=== PATIENT | male | born 1950 | race Caucasian/White ===

== ENCOUNTER 2019-05-29 22:38 | Inpatient (IN) | payer OTHER, MEDICARE ==
[~2019-05-29] VITALS: Ht 177.8 cm; Wt 106.7 kg
[2019-05-29] MEDS ORDERED: HEPARIN for IV BOLUS 10,000 UNIT/10 ML VIAL. IV ONE (23:00)
[2019-05-29] MEDS ORDERED: MIDAZOLAM HCL/PF 2 MG/2 ML VIAL. ONE (23:02)
[2019-05-29] MEDS ORDERED: fentaNYL PF VIAL 100 MCG/2 ML VIAL ONE (23:02)
[2019-05-29] MEDS ORDERED: LIDOCAINE 1% Multi-Dose 20 ML VIAL. ONE (23:03)
[2019-05-29] MEDS ORDERED: IODIXANOL 320 MG/ML 100 ML VIAL. ONE (23:03)
[2019-05-29 23:05] LABS: BASO # 0.1 x10^3/uL (0.0-0.2); BASO % 1 % (0-3); EOS # 0.2 x10^3/uL (0.0-0.7); EOS % 3 % (0-3); HEMATOCRIT 42.9 % (39.0-53.0); HEMOGLOBIN 14.7 g/dL (13.0-17.5); LYMPH # 2.5 x10^3/uL (1.0-4.8); LYMPH % 32 % (24-48); MEAN CORPUSCULAR HEMOGLOBIN 30 pg (25-35); MEAN CORPUSCULAR HGB CONC 34 g/dL (31-37); MEAN CORPUSCULAR VOLUME 87 fL (79-100); MONO # 0.5 x10^3/uL (0.0-1.1); MONO % 7 % (0-9); NEUT # 4.5 x10^3/uL (1.8-7.7); NEUT % 58 % (31-73); PLATELET COUNT 212 x10^3/uL (140-400); RED BLOOD COUNT 4.92 x10^6/uL (4.30-5.70); RED CELL DISTRIBUTION WIDTH 14.9 % (11.5-14.5); WHITE BLOOD COUNT 7.8 x10^3/uL (4.0-11.0)
[2019-05-29 23:14] LABS: PROTHROMBIN TIME PATIENT 12.3 SEC (11.7-14.0)
[2019-05-29 23:15] LABS: CALCIUM 9.2 mg/dL (8.5-10.1); CREATININE 0.9 mg/dL (0.7-1.3); GFR 83.4; POTASSIUM 4.1 mmol/L (3.5-5.1)
[2019-05-29 23:21] LABS: ALBUMIN 3.3 g/dL (3.4-5.0); ALBUMIN/GLOBULIN RATIO 0.9 (1.0-1.7); TOTAL BILIRUBIN 0.5 mg/dL (0.2-1.0); TOTAL PROTEIN 6.8 g/dL (6.4-8.2)
[2019-05-29] MEDS ORDERED: NITROGLYCERIN SUBLINGUAL 0.4 MG BOTTLE OF 25. SL PRN (23:30)
[2019-05-29] MEDS ORDERED: HEPARIN for IV BOLUS 10,000 UNIT/10 ML VIAL. IV PRN (23:30)
[2019-05-29] MEDS: HEPARIN 25,000UTS/500ML PREMIX 500 ML IV PRN (23:37)
--- NOTE | 2019-05-29 23:41 | PHYS DOC ---
Adult General Chief Complaint Chief Complaint: CHEST PAIN HPI HPI Patient is a 69 year old [male with a prior history of coronary artery disease status post stent placement presenting with severe chest pain onset 7:30 felt in the mid back up into the chin and jaw area bilateral arms and also pressure in the center of the chest associated with diaphoresis and nausea paramedics identified a STEMI gave him nitroglycerin and aspirin and fentanyl on arrival to the emergency room the pain is down to a 4 out of 10 and when the raisin separator operator came to see him here in the emergency room he basically had gone away all the way Review of Systems Review of Systems Constitutional: Denies fever or chills [] Eyes: Denies change in visual acuity, redness, or eye pain [] miting, bloody stools or diarrhea [] Musculoskeletal: Integument: Denies rash or skin lesions [] Neurologic: Denies headache, focal weakness or sensory changes [] Endocrine: Denies polyuria or polydipsia [] All other systems were reviewed and found to be within normal limits, except as documented in this note. Current Medications Current Medications Current Medications Medications (Trade) Dose Ordered Sig/Popeye Start Time Stop Time Status Last Admin Dose Admin Fentanyl Citrate (Fentanyl 2ml Vial) 100 mcg STK-MED ONCE 05/29/19 23:02 05/29/19 23:03 DC Heparin Sodium (Porcine) (Heparin Sodium) 2,650 unit PRN Q6HRS PRN 05/29/19 23:30 Heparin Sodium/ Dextrose 500 ml @ 0 mls/hr CONT PRN 05/29/19 23:30 Heparin Sodium/ Sodium Chloride 500 ml @ As Directed STK-MED ONCE 05/29/19 23:03 05/29/19 23:03 DC Iodixanol (Visipaque 320) 100 ml STK-MED ONCE 05/29/19 23:03 05/29/19 23:03 DC Lidocaine HCl (Lidocaine 1% 20ml Vial) 20 ml STK-MED ONCE 05/29/19 23:03 05/29/19 23:03 DC Midazolam HCl (Versed) 2 mg STK-MED ONCE 05/29/19 23:02 05/29/19 23:03 DC Nitroglycerin (Nitrostat) 0.4 mg PRN Q5MIN PRN 05/29/19 23:30 05/30/19 23:29 Allergies Allergies Allergies Coded Allergies Type Severity Reaction Last Updated Verified No Known Drug Allergies 05/29/19 No Physical Exam Physical Exam Constitutional: Well developed, well nourished, no acute distress, non-toxic appearance. [] HENT: Normocephalic, atraumatic, bilateral external ears normal, oropharynx moist, no oral exudates, nose normal. [] Eyes: PERRLA, EOMI, conjunctiva normal, no discharge. [] Neck: Normal range of motion, no tenderness, supple, no stridor. [] Cardiovascular:Heart rate regular rhythm, no murmur [] Lungs & Thorax: Bilateral breath sounds clear to auscultation [] Abdomen: Bowel sounds normal, soft, no tenderness, no masses, no pulsatile masses. [] Skin: Diaphoretic but otherwise actually looks pretty comfortable Back: No tenderness, no CVA tenderness. [] Extremities: No tenderness, no cyanosis, no clubbing, ROM intact, 2+ edema bilaterally slightly more in the right he says that HOW IT IS at baseline Neurologic: Alert and oriented X 3, normal motor function, normal sensory function, no focal deficits noted. [] Psychologic: Affect normal, judgement normal, mood normal. [] Current Patient Data Lab Values Laboratory Tests Test 05/29/19 22:50 White Blood Count 7.8 x10^3/uL (4.0-11.0) Red Blood Count 4.92 x10^6/uL (4.30-5.70) Hemoglobin 14.7 g/dL (13.0-17.5) Hematocrit 42.9 % (39.0-53.0) Mean Corpuscular Volume 87 fL (79-100) Mean Corpuscular Hemoglobin 30 pg (25-35) Mean Corpuscular Hemoglobin Concent 34 g/dL (31-37) Red Cell Distribution Width 14.9 % (11.5-14.5) H Platelet Count 212 x10^3/uL (140-400) Neutrophils (%) (Auto) 58 % (31-73) Lymphocytes (%) (Auto) 32 % (24-48) Monocytes (%) (Auto) 7 % (0-9) Eosinophils (%) (Auto) 3 % (0-3) Basophils (%) (Auto) 1 % (0-3) Neutrophils # (Auto) 4.5 x10^3/uL (1.8-7.7) Lymphocytes # (Auto) 2.5 x10^3/uL (1.0-4.8) Monocytes # (Auto) 0.5 x10^3/uL (0.0-1.1) Eosinophils # (Auto) 0.2 x10^3/uL (0.0-0.7) Basophils # (Auto) 0.1 x10^3/uL (0.0-0.2) Prothrombin Time 12.3 SEC (11.7-14.0) Prothrombin Time INR 0.9 (0.8-1.1) Sodium Level 138 mmol/L (136-145) Potassium Level 4.1 mmol/L (3.5-5.1) Chloride Level 102 mmol/L (98-107) Carbon Dioxide Level 27 mmol/L (21-32) Anion Gap 9 (6-14) Blood Urea Nitrogen 19 mg/dL (8-26) Creatinine 0.9 mg/dL (0.7-1.3) Estimated GFR (Cockcroft-Gault) 83.4 BUN/Creatinine Ratio 21 (6-20) H Glucose Level 325 mg/dL (70-99) H Calcium Level 9.2 mg/dL (8.5-10.1) Total Bilirubin 0.5 mg/dL (0.2-1.0) Aspartate Amino Transferase (AST) 38 U/L (15-37) H Alanine Aminotransferase (ALT) 43 U/L (16-63) Alkaline Phosphatase 95 U/L (46-116) Troponin I Quantitative 0.092 ng/mL (0.000-0.055) Total Protein 6.8 g/dL (6.4-8.2) Albumin 3.3 g/dL (3.4-5.0) L Albumin/Globulin Ratio 0.9 (1.0-1.7) L Laboratory Tests 05/29/19 22:50 Laboratory Tests 05/29/19 22:50 EKG EKG []Normal sinus rhythm rate of 62 no acute ischemic changes noted specifically no ST elevation on this EKG at 2246 EKG from the paramedics did show ST elevation in the inferior leads Radiology/Procedures Radiology/Procedures [] Impressions: Given the portable technique and the poor inspiration no definite abnormality was identified interpreted by md Course & Med Decision Making Course & Med Decision Making Pertinent Labs and Imaging studies reviewed. (See chart for details) [] Critical care time was 45 minutes exclusive of procedures. 69-year-old male [facility] patient coming from home with chest pain initial EKG was concerning for the paramedics for inferior wall ST elevation or reviewed this with activated STEMI from the field EKG on arrival here did show no STEMI Dr. Rice came to the bedside and evaluated the patient for now placed on heparin diagnosis unstable angina ICU admit he will call on about an hour and check on the patient no emergency catheter at this time he talked to the patient in detail as well HEPARIN DRIP ICU ADMIT HIMS ADMIT Dragon Disclaimer Dragon Disclaimer This electronic medical record was generated, in whole or in part, using a voice recognition dictation system. Departure Departure Impression: Primary Impression: Unstable angina Disposition: ADMITTED INPATIENT Admitting Physician: BRITTANY Condition: GUARDED Referrals: NO PCP (PCP) ROBERT RIVERS MD May 29, 2019 23:41
[2019-05-30] VITALS (19 sets, daily range): BP systolic 116–178; BP diastolic 63–99
--- NOTE | 2019-05-30 00:30 | NUR ---
pt admitted to room 115 from ED at this time. pt alert and oriented x4, VSS on 2L/NC, able to answer all admission questions without difficulty. pt and oriented to room, unit routines, call light, plan of care and current medications; both verbalize understanding. call light in reach. will pass on in report. will continue to closely monitor.
[2019-05-30] MEDS ORDERED: METO100T7 PO (01:27)
[2019-05-30] MEDS ORDERED: GABA800T5 PO (01:27)
[2019-05-30] MEDS ORDERED: CLOP75TA PO (01:27)
[2019-05-30] MEDS ORDERED: GLIM4TAB4 PO (01:27)
[2019-05-30] MEDS ORDERED: RANI150T2 PO (01:27)
--- NOTE | 2019-05-30 07:31 | RAD ---
Indication:Chest pain TECHNIQUE:Portable AP chest X-ray COMPARISON: None FINDINGS: Heart is top normal in size. Interstitial opacities bilaterally. Opacification of the left costophrenic angle and to some extent of the right costophrenic angle. No pneumothorax. Visualized bony thorax within normal limits. IMPRESSION: 1. Mild interstitial opacities bilaterally may be secondary to interstitial pulmonary edema or atypical/viral infection. 2. Blunting of the bilateral costophrenic angles may be secondary to trace pleural effusion. Electronically signed by: Jacob Retana DO (05/30/2019 7:28 AM) [facility]
[2019-05-30] MEDS ORDERED: NITROGLYCERIN SUBLINGUAL 0.4 MG BOTTLE OF 25. SL PRN (09:00)
[2019-05-30] MEDS ORDERED: METOPROLOL TARTRATE 5 MG/5 ML VIAL. IVP PRN (09:00)
[2019-05-30] MEDS ORDERED: DEXTROSE 50% 25 GM / 50ML DISP.SYRIN. IV PRN (09:00)
[2019-05-30] MEDS ORDERED: INSULIN LISPRO 300 UNITS/3 ML VIAL. SQ ONE (09:00)
[2019-05-30] MEDS ORDERED: MORPHINE SULFATE 4 MG/ML VIAL. IV PRN (09:00)
--- NOTE | 2019-05-30 09:21 | PDOC1 ---
History and Physical Date of Admission Date of Admission DATE: 05/30/19 TIME: 09:17 Source Source: Chart review, Patient History of Present Illness History of Present Illness Mr. Moore is a 69 year old admit with acute chest pain. LAst night, he had sudden onset of severe chest pain at 7:30, he felt in the mid back up into the chin and jaw area bilateral arms and also pressure in the center of the chest associated with diaphoresis and nausea. Initially called as STEMI, nitroglycerin and aspirin and fentanyl on arrival, but then, our media intern came to see him here in the emergency room. EKG ok, pain better, pain this AM is gone, he has been on a heparin gtt overnight, he moved here from [place] last year, he had a stent placed there 3 years ago after a heart attack. he gets his care here at a [facility] [place]. he works as an artist, doing graphic design for [employer] Past Medical History Cardiovascular: CAD, HTN Pulmonary: No pertinent hx Endocrine: Diabetes Past Surgical History Past Surgical History: Other Family History Family History: Coronary Artery Disease Social History Smoke: No ALCOHOL: none Drugs: None Current Medications Current Medications Current Medications Heparin Sodium (Porcine) (Heparin Sodium) 4,000 unit 1X ONCE IV Last administered on 05/29/19at 23:17; Start 05/29/19 at 23:00; Stop 05/29/19 at 23:01; Status DC Fentanyl Citrate (Fentanyl 2ml Vial) 100 mcg STK-MED ONCE .ROUTE ; Start 05/29/19 at 23:02; Stop 05/29/19 at 23:03; Status DC Midazolam HCl (Versed) 2 mg STK-MED ONCE .ROUTE ; Start 05/29/19 at 23:02; Stop 05/29/19 at 23:03; Status DC Iodixanol (Visipaque 320) 100 ml STK-MED ONCE .ROUTE ; Start 05/29/19 at 23:03; Stop 05/29/19 at 23:03; Status DC Lidocaine HCl (Lidocaine 1% 20ml Vial) 20 ml STK-MED ONCE .ROUTE ; Start 05/29/19 at 23:03; Stop 05/29/19 at 23:03; Status DC Heparin Sodium/ Sodium Chloride 500 ml @ As Directed STK-MED ONCE .ROUTE ; Start 05/29/19 at 23:03; Stop 05/29/19 at 23:03; Status DC Nitroglycerin (Nitrostat) 0.4 mg PRN Q5MIN PRN SL CHEST PAIN; Start 05/29/19 at 23:30; Stop 05/30/19 at 09:01; Status DC Heparin Sodium/ Dextrose 500 ml @ 0 mls/hr CONT PRN IV PER PROTOCOL Last administered on 05/29/19at 23:37; Start 05/29/19 at 23:30 Heparin Sodium (Porcine) (Heparin Sodium) 2,650 unit PRN Q6HRS PRN IV FOR UFH LEVEL LESS THAN 0.2; Start 05/29/19 at 23:30 Insulin Human Lispro (HumaLOG) 15 units 1X ONCE SQ ; Start 05/30/19 at 09:00; Stop 05/30/19 at 09:01; Status DC Insulin Human Lispro (HumaLOG) 0-9 UNITS TIDWMEALS SQ ; Start 05/30/19 at 12:00 Dextrose (Dextrose 50%-Water Syringe) 12.5 gm PRN Q15MIN PRN IV SEE COMMENTS; Start 05/30/19 at 09:00 Clopidogrel Bisulfate (Plavix) 75 mg DAILY PO ; Start 05/30/19 at 09:00 Gabapentin (Neurontin) 800 mg TID PO ; Start 05/30/19 at 09:00 Famotidine (Pepcid) 20 mg DAILY PO ; Start 05/30/19 at 09:00 Metoprolol Tartrate (Lopressor) 50 mg BID PO ; Start 05/30/19 at 09:00 Metoprolol Tartrate (Lopressor Vial) 5 mg PRN Q6HRS PRN IVP HYPERTENSION; Start 05/30/19 at 09:00 Morphine Sulfate (Morphine Sulfate) 4 mg PRN Q2HR PRN IV PAIN; Start 05/30/19 at 09:00 Nitroglycerin (Nitrostat) 0.4 mg PRN Q5MIN PRN SL CHEST PAIN; Start 05/30/19 at 09:00 Active Scripts Active Reported Metoprolol Tartrate 100 Mg Tablet 250 Mg PO BID Clopidogrel (Clopidogrel Bisulfate) 75 Mg Tablet 1 Tab PO DAILY Glimepiride 4 Mg Tablet 1 Tab PO DAILY Gabapentin 800 Mg Tablet 800 Mg PO TID Ranitidine Hcl 150 Mg Tablet 1 Tab PO DAILY Allergies Allergies: Coded Allergies: No Known Drug Allergies (Unverified , 05/29/19) ROS General: No: Chills, Night Sweats, Fatigue, Malaise, Appetite, Other PSYCHOLOGICAL ROS: No: Anxiety, Behavioral Disorder, Concentration difficultie, Decreased libido, Depression, Disorientation, Hallucinations, Hostility, Irritablity, Memory difficulties, Mood Swings, Obsessive thoughts, Physical abuse, Sexual abuse, Sleep disturbances, Suicidal ideation, Other Eyes: No Blurry vision, No Decreased vision, No Double vision, No Dry eyes, No Excessive tearing, No Eye Pain, No Itchy Eyes, No Loss of vision, No Photophobia, No Scotomata, No Uses contacts, No Uses glasses, No Other HEENT: No: Heacaches, Visual Changes, Hearing change, Nasal congestion, Nasal discharge, Oral lesions, Sinus pain, Sore Throat, Epistaxis, Sneezing, Snoring, Tinnitus, Vertigo, Vocal changes, Other Respiratory: YES: SOB with excertion; No: Cough, Hemoptysis, Orthopnea, Pleuritic Pain, Shortness of breath, Stridor, Tachypnea, Wheezing, Other Cardiovascular: yes Chest Pain; No Palpitations, No Orthopnea, No Paroxysmal Noc. Dyspnea, No Edema, No Lt Headedness, No Other Gastrointestinal: No Nausea, No Vomiting, No Abdominal Pain, No Diarrhea, No Constipation, No Melena, No Hematochezia, No Other Genitourinary: No Dysuria, No Frequency, No Incontinence, No Hematuria, No Retention, No Discharge, No Urgency, No Pain, No Flank Pain, No Other, No , No , No , No , No , No , No Musculoskeletal: No Gait Disturbance, No Joint Pain, No Joint Stiffness, No Joint Swelling, No Muscle Pain, No Muscular Weakness, No Pain In:, No Swelling In:, No Other Neurological: No Behavorial Changes, No Bowel/Bladder ControlChng, No Confusion, No Dizziness, No Gait Disturbance, No Headaches, No Impaired Coord/balance, No Memory Loss, No Numbness/Tingling, No Seizures, No Speech Problems, No Tremors, No Visual Changes, No Weakness, No Other Skin: No Dry Skin, No Eczema, No Hair Changes, No Lumps, No Mole Changes, No Mottling, No Nail Changes, No Pruritus, No Rash, No Skin Lesion Changes, No Other, No Acne Physical Exam General: Alert, Oriented X3, Cooperative, No acute distress HEENT: PERRLA Abdomen: Normal bowel sounds, Soft Extremities: No clubbing, No edema, Normal pulses Skin: No breakdown, No significant lesion Neuro: Normal gait, Strength at 5/5 X4 ext, Normal tone, Cranial nerves 3-12 NL Psych/Mental Status: Mood NL Vitals Vitals Vital Signs Date Time Temp Pulse Resp B/P (MAP) Pulse Ox O2 Delivery O2 Flow Rate FiO2 05/30/19 09:06 94 12 146/74 (98) 95 Room Air 05/30/19 07:00 97.7 97.7 05/30/19 06:00 2.0 Labs Labs Laboratory Tests Test 05/29/19 22:50 05/30/19 00:30 05/30/19 05:50 White Blood Count 7.8 x10^3/uL (4.0-11.0) Red Blood Count 4.92 x10^6/uL (4.30-5.70) Hemoglobin 14.7 g/dL (13.0-17.5) Hematocrit 42.9 % (39.0-53.0) Mean Corpuscular Volume 87 fL (79-100) Mean Corpuscular Hemoglobin 30 pg (25-35) Mean Corpuscular Hemoglobin Concent 34 g/dL (31-37) Red Cell Distribution Width 14.9 % (11.5-14.5) Platelet Count 212 x10^3/uL (140-400) Neutrophils (%) (Auto) 58 % (31-73) Lymphocytes (%) (Auto) 32 % (24-48) Monocytes (%) (Auto) 7 % (0-9) Eosinophils (%) (Auto) 3 % (0-3) Basophils (%) (Auto) 1 % (0-3) Neutrophils # (Auto) 4.5 x10^3/uL (1.8-7.7) Lymphocytes # (Auto) 2.5 x10^3/uL (1.0-4.8) Monocytes # (Auto) 0.5 x10^3/uL (0.0-1.1) Eosinophils # (Auto) 0.2 x10^3/uL (0.0-0.7) Basophils # (Auto) 0.1 x10^3/uL (0.0-0.2) Prothrombin Time 12.3 SEC (11.7-14.0) Prothromb Time International Ratio 0.9 (0.8-1.1) Sodium Level 138 mmol/L (136-145) Potassium Level 4.1 mmol/L (3.5-5.1) Chloride Level 102 mmol/L (98-107) Carbon Dioxide Level 27 mmol/L (21-32) Anion Gap 9 (6-14) Blood Urea Nitrogen 19 mg/dL (8-26) Creatinine 0.9 mg/dL (0.7-1.3) Estimated GFR (Cockcroft-Gault) 83.4 BUN/Creatinine Ratio 21 (6-20) Glucose Level 325 mg/dL (70-99) Calcium Level 9.2 mg/dL (8.5-10.1) Total Bilirubin 0.5 mg/dL (0.2-1.0) Aspartate Amino Transf (AST/SGOT) 38 U/L (15-37) Alanine Aminotransferase (ALT/SGPT) 43 U/L (16-63) Alkaline Phosphatase 95 U/L (46-116) Troponin I Quantitative 0.092 ng/mL (0.000-0.055) 2.725 ng/mL (0.000-0.055) 21.629 ng/mL (0.000-0.055) Total Protein 6.8 g/dL (6.4-8.2) Albumin 3.3 g/dL (3.4-5.0) Albumin/Globulin Ratio 0.9 (1.0-1.7) Heparin Anti-Xa Act, Unfractionated 0.36 IU/mL (0.30-0.70) Laboratory Tests Test 05/29/19 22:50 05/30/19 00:30 05/30/19 05:50 White Blood Count 7.8 x10^3/uL (4.0-11.0) Red Blood Count 4.92 x10^6/uL (4.30-5.70) Hemoglobin 14.7 g/dL (13.0-17.5) Hematocrit 42.9 % (39.0-53.0) Mean Corpuscular Volume 87 fL (79-100) Mean Corpuscular Hemoglobin 30 pg (25-35) Mean Corpuscular Hemoglobin Concent 34 g/dL (31-37) Red Cell Distribution Width 14.9 % (11.5-14.5) Platelet Count 212 x10^3/uL (140-400) Neutrophils (%) (Auto) 58 % (31-73) Lymphocytes (%) (Auto) 32 % (24-48) Monocytes (%) (Auto) 7 % (0-9) Eosinophils (%) (Auto) 3 % (0-3) Basophils (%) (Auto) 1 % (0-3) Neutrophils # (Auto) 4.5 x10^3/uL (1.8-7.7) Lymphocytes # (Auto) 2.5 x10^3/uL (1.0-4.8) Monocytes # (Auto) 0.5 x10^3/uL (0.0-1.1) Eosinophils # (Auto) 0.2 x10^3/uL (0.0-0.7) Basophils # (Auto) 0.1 x10^3/uL (0.0-0.2) Prothrombin Time 12.3 SEC (11.7-14.0) Prothromb Time International Ratio 0.9 (0.8-1.1) Sodium Level 138 mmol/L (136-145) Potassium Level 4.1 mmol/L (3.5-5.1) Chloride Level 102 mmol/L (98-107) Carbon Dioxide Level 27 mmol/L (21-32) Anion Gap 9 (6-14) Blood Urea Nitrogen 19 mg/dL (8-26) Creatinine 0.9 mg/dL (0.7-1.3) Estimated GFR (Cockcroft-Gault) 83.4 BUN/Creatinine Ratio 21 (6-20) Glucose Level 325 mg/dL (70-99) Calcium Level 9.2 mg/dL (8.5-10.1) Total Bilirubin 0.5 mg/dL (0.2-1.0) Aspartate Amino Transf (AST/SGOT) 38 U/L (15-37) Alanine Aminotransferase (ALT/SGPT) 43 U/L (16-63) Alkaline Phosphatase 95 U/L (46-116) Troponin I Quantitative 0.092 ng/mL (0.000-0.055) 2.725 ng/mL (0.000-0.055) 21.629 ng/mL (0.000-0.055) Total Protein 6.8 g/dL (6.4-8.2) Albumin 3.3 g/dL (3.4-5.0) Albumin/Globulin Ratio 0.9 (1.0-1.7) Heparin Anti-Xa Act, Unfractionated 0.36 IU/mL (0.30-0.70) VTE Prophylaxis Ordered VTE Prophylaxis Devices: Yes VTE Pharmacological Prophylaxi: No Assessment/Plan Assessment/Plan NSTEMI acute chest pain hx CAD DM2, poor control, he is not aware of his A1c hgb level obese, BMI 33 ARMANDO SAM MD May 30, 2019 09:21
[2019-05-30] MEDS: GABAPENTIN 400 MG CAPSULE. PO SCH ×3 (09:26→21:00)
[2019-05-30] MEDS: METOPROLOL TART IMMED RELEASE 50 MG TABLET. PO SCH ×2 (09:26→21:01)
[2019-05-30] MEDS: FAMOTIDINE 20 MG TABLET. PO SCH (09:26)
[2019-05-30] MEDS: CLOPIDOGREL BISULFATE 75 MG TABLET PO SCH (09:26)
[2019-05-30] MEDS ORDERED: ANTI-COAG MONITOR BY PHARMACY. MC PRN (11:00)
--- NOTE | 2019-05-30 11:17 | EKG ---
[facility] [address] [place] [address] Test Date: 2019-05-29 Test Time: 22:46:33 Pat Name: DAVIE SAMANIEGO Department: Room: 115 1 Gender: M Manager Epic: : [id number] Requested By: ROBETR RIVERS Order Number: [id number] Reading MD: Jermaine Petit MD Measurements Intervals [place] Rate: 62 P: 57 NE: 150 QRS: 48 QRSD: 88 T: 46 QT: 382 QTc: 390 Interpretive Statements SINUS RHYTHM Electronically Signed On 06-08-2019 9:52:41 CDT by Jermaine Petit MD
[2019-05-30] MEDS: INSULIN LISPRO 300 UNITS/3 ML VIAL. SQ SCH ×2 (12:14→17:23)
--- NOTE | 2019-05-30 15:15 | PDOC2 ---
CONSULT Date of Consult Date of Consult DATE: 05/30/19 TIME: 15:09 Reason for Consult Reason for Consult: Chest pain Referring Physician Referring Physician: Dr. Burkett Identification/Chief Complaint Chief Complaint Chest pain Source Source: Chart review, Patient History of Present Illness Reason for Visit: The patient is a 69-year-old male with a history of coronary artery disease and previous stents. Patient developed chest pain last night and paramedics were called. An STEMI activation was made by the paramedics. The patient was seen in the emergency room by myself. At that time the patient's pain has resolved. EKG showed no acute ST elevated myocardial infarction. After discussion with the patient he was ilene although at the [place] ated overnight with heparin and has remained pain-free. This morning he reports feeling well with no chest pain or shortness of breath. His troponin has elevated to 21 at its peak. He also has a history of hypertension and diabetes mellitus. His lipid panel is pending. Past Medical History Cardiovascular: CAD, HTN Pulmonary: No pertinent hx Endocrine: Diabetes Past Surgical History Past Surgical History: Other (coronary stents) Family History Family History: Coronary Artery Disease Social History No ALCOHOL: none Drugs: None Current Medications Current Medications Current Medications Heparin Sodium (Porcine) (Heparin Sodium) 4,000 unit 1X ONCE IV Last administered on 05/29/19at 23:17; Start 05/29/19 at 23:00; Stop 05/29/19 at 23:01; Status DC Fentanyl Citrate (Fentanyl 2ml Vial) 100 mcg STK-MED ONCE .ROUTE ; Start 05/29/19 at 23:02; Stop 05/29/19 at 23:03; Status DC Midazolam HCl (Versed) 2 mg STK-MED ONCE .ROUTE ; Start 05/29/19 at 23:02; Stop 05/29/19 at 23:03; Status DC Iodixanol (Visipaque 320) 100 ml STK-MED ONCE .ROUTE ; Start 05/29/19 at 23:03; Stop 05/29/19 at 23:03; Status DC Lidocaine HCl (Lidocaine 1% 20ml Vial) 20 ml STK-MED ONCE .ROUTE ; Start 05/29/19 at 23:03; Stop 05/29/19 at 23:03; Status DC Heparin Sodium/ Sodium Chloride 500 ml @ As Directed STK-MED ONCE .ROUTE ; Start 05/29/19 at 23:03; Stop 05/29/19 at 23:03; Status DC Nitroglycerin (Nitrostat) 0.4 mg PRN Q5MIN PRN SL CHEST PAIN; Start 05/29/19 at 23:30; Stop 05/30/19 at 09:01; Status DC Heparin Sodium/ Dextrose 500 ml @ 0 mls/hr CONT PRN IV PER PROTOCOL Last administered on 05/29/19at 23:37; Start 05/29/19 at 23:30 Heparin Sodium (Porcine) (Heparin Sodium) 2,650 unit PRN Q6HRS PRN IV FOR UFH LEVEL LESS THAN 0.2; Start 05/29/19 at 23:30 Insulin Human Lispro (HumaLOG) 15 units 1X ONCE SQ Last administered on 05/30/19at 09:21; Start 05/30/19 at 09:00; Stop 05/30/19 at 09:01; Status DC Insulin Human Lispro (HumaLOG) 0-9 UNITS TIDWMEALS SQ Last administered on at 12:14; Start 05/30/19 at 12:00 Dextrose (Dextrose 50%-Water Syringe) 12.5 gm PRN Q15MIN PRN IV SEE COMMENTS; Start 05/30/19 at 09:00 Clopidogrel Bisulfate (Plavix) 75 mg DAILY PO Last administered on 05/30/19at 09:26; Start 05/30/19 at 09:00 Gabapentin (Neurontin) 800 mg TID PO Last administered on 05/30/19at 14:25; Start 05/30/19 at 09:00 Famotidine (Pepcid) 20 mg DAILY PO Last administered on 05/30/19at 09:26; Start 05/30/19 at 09:00 Metoprolol Tartrate (Lopressor) 50 mg BID PO Last administered on 05/30/19at 09:26; Start 05/30/19 at 09:00 Metoprolol Tartrate (Lopressor Vial) 5 mg PRN Q6HRS PRN IVP HYPERTENSION; Start 05/30/19 at 09:00 Morphine Sulfate (Morphine Sulfate) 4 mg PRN Q2HR PRN IV PAIN; Start 05/30/19 at 09:00 Nitroglycerin (Nitrostat) 0.4 mg PRN Q5MIN PRN SL CHEST PAIN; Start 05/30/19 at 09:00 Info (Anti-Coagulation Monitoring By Pharmacy) 1 each PRN DAILY PRN MC SEE COMMENTS Last administered on 05/30/19at 10:57; Start 05/30/19 at 11:00 Active Scripts Active Reported Metoprolol Tartrate 100 Mg Tablet 250 Mg PO BID Clopidogrel (Clopidogrel Bisulfate) 75 Mg Tablet 1 Tab PO DAILY Glimepiride 4 Mg Tablet 1 Tab PO DAILY Gabapentin 800 Mg Tablet 800 Mg PO TID Ranitidine Hcl 150 Mg Tablet 1 Tab PO DAILY Allergies Allergies: Coded Allergies: No Known Drug Allergies (Unverified , 05/29/19) ROS Cardiovascular: yes Chest Pain Physical Exam General: No acute distress HEENT: Atraumatic Lungs: Clear to auscultation Heart: Regular rate Abdomen: Normal bowel sounds Vitals VITALS Vital Signs Date Time Temp Pulse Resp B/P (MAP) Pulse Ox O2 Delivery O2 Flow Rate FiO2 05/30/19 14:00 75 12 159/99 (119) 94 Room Air 05/30/19 12:00 98.4 98.4 05/30/19 06:00 2.0 Labs Labs Laboratory Tests Test 05/29/19 22:50 05/30/19 00:30 05/30/19 05:50 05/30/19 12:10 White Blood Count 7.8 x10^3/uL (4.0-11.0) Red Blood Count 4.92 x10^6/uL (4.30-5.70) Hemoglobin 14.7 g/dL (13.0-17.5) Hematocrit 42.9 % (39.0-53.0) Mean Corpuscular Volume 87 fL (79-100) Mean Corpuscular Hemoglobin 30 pg (25-35) Mean Corpuscular Hemoglobin Concent 34 g/dL (31-37) Red Cell Distribution Width 14.9 % (11.5-14.5) Platelet Count 212 x10^3/uL (140-400) Neutrophils (%) (Auto) 58 % (31-73) Lymphocytes (%) (Auto) 32 % (24-48) Monocytes (%) (Auto) 7 % (0-9) Eosinophils (%) (Auto) 3 % (0-3) Basophils (%) (Auto) 1 % (0-3) Neutrophils # (Auto) 4.5 x10^3/uL (1.8-7.7) Lymphocytes # (Auto) 2.5 x10^3/uL (1.0-4.8) Monocytes # (Auto) 0.5 x10^3/uL (0.0-1.1) Eosinophils # (Auto) 0.2 x10^3/uL (0.0-0.7) Basophils # (Auto) 0.1 x10^3/uL (0.0-0.2) Prothrombin Time 12.3 SEC (11.7-14.0) Prothromb Time International Ratio 0.9 (0.8-1.1) Sodium Level 138 mmol/L (136-145) Potassium Level 4.1 mmol/L (3.5-5.1) Chloride Level 102 mmol/L (98-107) Carbon Dioxide Level 27 mmol/L (21-32) Anion Gap 9 (6-14) Blood Urea Nitrogen 19 mg/dL (8-26) Creatinine 0.9 mg/dL (0.7-1.3) Estimated GFR (Cockcroft-Gault) 83.4 BUN/Creatinine Ratio 21 (6-20) Glucose Level 325 mg/dL (70-99) Calcium Level 9.2 mg/dL (8.5-10.1) Total Bilirubin 0.5 mg/dL (0.2-1.0) Aspartate Amino Transf (AST/SGOT) 38 U/L (15-37) Alanine Aminotransferase (ALT/SGPT) 43 U/L (16-63) Alkaline Phosphatase 95 U/L (46-116) Troponin I Quantitative 0.092 ng/mL (0.000-0.055) 2.725 ng/mL (0.000-0.055) 21.629 ng/mL (0.000-0.055) Total Protein 6.8 g/dL (6.4-8.2) Albumin 3.3 g/dL (3.4-5.0) Albumin/Globulin Ratio 0.9 (1.0-1.7) Heparin Anti-Xa Act, Unfractionated 0.36 IU/mL (0.30-0.70) Glucose (Fingerstick) 247 mg/dL (70-99) Test 05/30/19 12:40 Heparin Anti-Xa Act, Unfractionated 0.21 IU/mL (0.30-0.70) Troponin I Quantitative 20.145 ng/mL (0.000-0.055) Laboratory Tests Test 05/29/19 22:50 05/30/19 00:30 05/30/19 05:50 05/30/19 12:10 White Blood Count 7.8 x10^3/uL (4.0-11.0) Red Blood Count 4.92 x10^6/uL (4.30-5.70) Hemoglobin 14.7 g/dL (13.0-17.5) Hematocrit 42.9 % (39.0-53.0) Mean Corpuscular Volume 87 fL (79-100) Mean Corpuscular Hemoglobin 30 pg (25-35) Mean Corpuscular Hemoglobin Concent 34 g/dL (31-37) Red Cell Distribution Width 14.9 % (11.5-14.5) Platelet Count 212 x10^3/uL (140-400) Neutrophils (%) (Auto) 58 % (31-73) Lymphocytes (%) (Auto) 32 % (24-48) Monocytes (%) (Auto) 7 % (0-9) Eosinophils (%) (Auto) 3 % (0-3) Basophils (%) (Auto) 1 % (0-3) Neutrophils # (Auto) 4.5 x10^3/uL (1.8-7.7) Lymphocytes # (Auto) 2.5 x10^3/uL (1.0-4.8) Monocytes # (Auto) 0.5 x10^3/uL (0.0-1.1) Eosinophils # (Auto) 0.2 x10^3/uL (0.0-0.7) Basophils # (Auto) 0.1 x10^3/uL (0.0-0.2) Prothrombin Time 12.3 SEC (11.7-14.0) Prothromb Time International Ratio 0.9 (0.8-1.1) Sodium Level 138 mmol/L (136-145) Potassium Level 4.1 mmol/L (3.5-5.1) Chloride Level 102 mmol/L (98-107) Carbon Dioxide Level 27 mmol/L (21-32) Anion Gap 9 (6-14) Blood Urea Nitrogen 19 mg/dL (8-26) Creatinine 0.9 mg/dL (0.7-1.3) Estimated GFR (Cockcroft-Gault) 83.4 BUN/Creatinine Ratio 21 (6-20) Glucose Level 325 mg/dL (70-99) Calcium Level 9.2 mg/dL (8.5-10.1) Total Bilirubin 0.5 mg/dL (0.2-1.0) Aspartate Amino Transf (AST/SGOT) 38 U/L (15-37) Alanine Aminotransferase (ALT/SGPT) 43 U/L (16-63) Alkaline Phosphatase 95 U/L (46-116) Troponin I Quantitative 0.092 ng/mL (0.000-0.055) 2.725 ng/mL (0.000-0.055) 21.629 ng/mL (0.000-0.055) Total Protein 6.8 g/dL (6.4-8.2) Albumin 3.3 g/dL (3.4-5.0) Albumin/Globulin Ratio 0.9 (1.0-1.7) Heparin Anti-Xa Act, Unfractionated 0.36 IU/mL (0.30-0.70) Glucose (Fingerstick) 247 mg/dL (70-99) Test 05/30/19 12:40 Heparin Anti-Xa Act, Unfractionated 0.21 IU/mL (0.30-0.70) Troponin I Quantitative 20.145 ng/mL (0.000-0.055) Images Images Chest x-ray with no acute changes Assessment/Plan Assessment/Plan 1. Non-ST elevated myocardial infarction. Patient has remained pain-free overnight. EKG shows no ST elevation. We will continue on heparin and his baseline cardiac medications. We'll proceed with cardiac catheterization tomorrow with possible revascularization. Risks and benefits were discussed with the patient. He has agreed to proceed. 2. Hypertension. This is under better control. Continue present treatment. 3. Diabetes mellitus. Inadequate control. Medications being adjusted by the primary service. 4. Uncertain cholesterol level. Lipid panel is pending. Thank you for allowing us to participate in the care of your patient. KRISTY DANIEL MD May 30, 2019 15:15
[2019-05-30] MEDS: HEPARIN 25,000UTS/500ML PREMIX 500 ML IV PRN (17:17)
[2019-05-30] MEDS ORDERED: ACETAMINOPHEN 325 MG TABLET. PO PRN (19:45)
[2019-05-30] MEDS: ACETAMINOPHEN 325 MG TABLET. PO PRN (20:01)
[2019-05-31] VITALS (14 sets, daily range): BP systolic 106–151; BP diastolic 62–92
--- NOTE | 2019-05-31 | NUR ---
pt now NPO at this time for scheduled cardiac cath in the AM. consents signed when 2100 meds administered, questions answered. will pass on in report, will continue to closely monitor.
[2019-05-31 04:48] LABS: BASO # 0.1 x10^3/uL (0.0-0.2); BASO % 1 % (0-3); EOS # 0.3 x10^3/uL (0.0-0.7); EOS % 4 % (0-3); HEMATOCRIT 43.5 % (39.0-53.0); HEMOGLOBIN 14.6 g/dL (13.0-17.5); LYMPH # 3.1 x10^3/uL (1.0-4.8); LYMPH % 39 % (24-48); MEAN CORPUSCULAR HEMOGLOBIN 30 pg (25-35); MEAN CORPUSCULAR HGB CONC 34 g/dL (31-37); MEAN CORPUSCULAR VOLUME 88 fL (79-100); MONO # 0.5 x10^3/uL (0.0-1.1); MONO % 7 % (0-9); NEUT # 3.9 x10^3/uL (1.8-7.7); NEUT % 50 % (31-73); PLATELET COUNT 200 x10^3/uL (140-400); RED BLOOD COUNT 4.95 x10^6/uL (4.30-5.70)
[2019-05-31 05:26] LABS: ALBUMIN 3.3 g/dL (3.4-5.0); ALBUMIN/GLOBULIN RATIO 0.9 (1.0-1.7); CALCIUM 9.1 mg/dL (8.5-10.1); CREATININE 0.9 mg/dL (0.7-1.3); GFR 83.4; TOTAL BILIRUBIN 0.6 mg/dL (0.2-1.0); TOTAL PROTEIN 6.9 g/dL (6.4-8.2)
[2019-05-31 05:27] LABS: POTASSIUM 4.2 mmol/L (3.5-5.1)
[2019-05-31] MEDS ORDERED: IV NORMAL SALINE 1000ML BAG 1,000 ML IV SCH (08:00)
[2019-05-31] MEDS: INSULIN LISPRO 300 UNITS/3 ML VIAL. SQ SCH ×3 (08:00→20:37)
[2019-05-31] MEDS: GABAPENTIN 400 MG CAPSULE. PO SCH ×3 (09:00→20:33)
[2019-05-31] MEDS: METOPROLOL TART IMMED RELEASE 50 MG TABLET. PO SCH ×2 (09:00→20:34)
[2019-05-31] MEDS ORDERED: LIDOCAINE 1% PF 2 ML VIAL. ONE (09:57)
--- NOTE | 2019-05-31 10:25 | EKG ---
[facility] [address] [place] [address] Test Date: 2019-05-31 Test Time: 10:11:17 Pat Name: DAVIE SAMANIEGO Department: Room: 115 1 Gender: M Inspecting And Testing Lead Hand: : 1950 Requested By: ROBERT RIVERS Order Number: [id number] Reading MD: Jermaine Petit MD Measurements Intervals [place] Rate: 73 P: 129 DE: 146 QRS: 177 QRSD: 88 T: -177 QT: 350 QTc: 389 Interpretive Statements SINUS RHYTHM LIMB LEAD MISPLACEMENT Electronically Signed On 06-08-2019 10:08:33 CDT by Jermaine Petit MD
[2019-05-31] MEDS: HEPARIN 25,000UTS/500ML PREMIX 500 ML IV PRN (10:30)
[2019-05-31] MEDS ORDERED: IOHEXOL 300 MG/ML 100ML VIAL. ONE (10:30)
[2019-05-31] MEDS: CLOPIDOGREL BISULFATE 75 MG TABLET PO SCH (10:38)
[2019-05-31] MEDS: FAMOTIDINE 20 MG TABLET. PO SCH (10:38)
[2019-05-31] MEDS ORDERED: NITROGLYCERIN 200 MCG/2 ML SYRINGE FOR CATH/VASC LAB. ONE (11:46)
[2019-05-31] MEDS ORDERED: fentaNYL PF VIAL 100 MCG/2 ML VIAL ONE (11:46)
[2019-05-31] MEDS ORDERED: MIDAZOLAM HCL/PF 2 MG/2 ML VIAL. ONE (11:46)
[2019-05-31] MEDS ORDERED: HEPARIN for IV BOLUS 10,000 UNIT/10 ML VIAL. ONE (11:46)
[2019-05-31] MEDS ORDERED: VERAPAMIL 5 MG/2 ML VIAL. ONE (11:46)
--- NOTE | 2019-05-31 11:56 | PDOC ---
MODERATE SEDATION ASSESSMENT RISKS/ALTERNATIVES Risks/Alternatives Risks and alternatives of this type of sedation and procedure discussed with: RISK/ALTERNATIVES: Patient H & P ON CHART H & P H & P on chart and reviewed for co-morbid conditions and appropriate labs. H&P ON CHART: Yes STATUS PREG STATUS ASSESSED: N/A MEDS/ALLERGIES REVIEWED Meds/Allergies Reviewed Medications and Allergies including time and route of recently administered narcotics and sedatives. MEDS/ALLERGIES REVIEWED: Yes ASA RATING ASA RATING: III AIRWAY ASSESSMENT Airway Assessment Airway patency, oral function limitations, presence of caps, crowns, dentures, partials, and ability to extend neck assessed. AIRWAY ASSESSMENT: Yes MALLAMPATI SCORE MALLAMPATI SCORE: II PRE-SEDATION ASSESSMENT PRE-SEDATION ASSESSMENT: Yes RODGER BYERS MD May 31, 2019 11:56
[2019-05-31] MEDS ORDERED: IOHEXOL 300 MG/ML 100ML VIAL. IART ONE (12:30)
[2019-05-31] MEDS ORDERED: NITROGLYCERIN 200 MCG/2 ML SYRINGE FOR CATH/VASC LAB. IART ONE (12:30)
[2019-05-31] MEDS ORDERED: fentaNYL PF VIAL 100 MCG/2 ML VIAL IV ONE (12:30)
[2019-05-31] MEDS ORDERED: VERAPAMIL 5 MG/2 ML VIAL. IART ONE (12:30)
[2019-05-31] MEDS ORDERED: MIDAZOLAM HCL/PF 2 MG/2 ML VIAL. IV ONE (12:30)
[2019-05-31] MEDS ORDERED: LIDOCAINE 1% Multi-Dose 20 ML VIAL. INJ ONE (12:30)
[2019-05-31] MEDS ORDERED: HEPARIN for IV BOLUS 10,000 UNIT/10 ML VIAL. IART ONE (12:30)
[2019-05-31] MEDS ORDERED: IV 1/2 NORMAL SALINE 1,000 ML IV SCH (12:32)
[2019-05-31] MEDS ORDERED: NITROGLYCERIN SUBLINGUAL 0.4 MG BOTTLE OF 25. SL PRN (12:45)
--- NOTE | 2019-05-31 13:45 | CARD ---
MR#: [id number] Date of Study: 05/31/2019 Ordering Physician: KRISTY DANIEL, Referring Physician: KRISTY DANIEL, Tech: RT Stephanie (Jeet) SUDARSHAN APPROVED REPORT Technologist: RT Stephanie (R) SUDARSHAN Nurse: RODRICK LYONS RN Procedure(s) performed: Left heart catheterization, selective coronary angiography and left ventricul ography via right transradial approach Fluoro time: 4.1 min Dose: [id number] Contrast:118cc Moderate sedation: 30 min INDICATION The indication(s) include : non-STEMI . CS Clinical Frailty Scale [facility] Clinical Frailty Scale: Mildly Frail Heart Failure Heart Failure: No PROCEDURE NARRATIVE After explaining the risks, benefits and alternative options, informed consent was obtained from mariam ent. Patient was brought to the cardiac Director Of Perioperative Services and right wrist was prepped and draped in the usual fashion after confirming a positive modified Jefe's test. Arterial access was obtained in the [facility] t radial artery and a 6 Serbian sheath was inserted. 6 Serbian Mani catheter was used to perform chitra ective angiography of the left and right coronary arteries. 6 Serbian pigtail catheter was used to pe rform left ventriculography. Patient tolerated the procedure well. Hemostasis was achieved using TR band. There were no immediate complications. The following findings were noted. FINDINGS 1. Hemodynamics: Left ventricular end-diastolic pressure of 15 mmHg. No pullback gradient across th e aortic valve. 2. Left ventriculography: Distal inferior wall hypokinesis with ejection fraction estimated at 50%. No significant mitral regurgitation seen. 3. Coronary angiography: a. The left main coronary artery arose from the left sinus of Valsalva, gave rise to the left anteri or descending and left circumflex arteries and did not show any significant stenosis. b. The left anterior descending artery showed 30% stenosis in the proximal segment. c. The left circumflex artery showed a widely patent stent extending from the midsegment into the ob tuse marginal branch. d. The right coronary artery was a large and dominant vessel arising from the right sinus of Valsalv a that showed 90-95% stenosis in the midsegment of the posterior descending branch. The vessel is of small-caliber beyond the stenosis. Conclusion 1. Patent previously placed stent in the left circumflex artery. 90-95% stenosis involving the midse gment of the posterior descending branch of the right coronary artery with small-caliber vessel beyon d the stenosis. 2. Distal inferior wall hypokinesis with ejection fraction estimated at 50% Recommendations Medical Therapy Signed by : Manoj Matos, Electronically Approved : 05/31/2019 13:44:52
--- NOTE | 2019-05-31 13:55 | NUR ---
[phone] NPO til after scheduled cath/ few ice chips after am oral care reported helpful at this time. 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 No further c/o CP. Access per right radial area arm board in place pulse ox right thumb,no compromise. VSS per protocol stable after return Continued on flow sheets.
--- NOTE | 2019-05-31 14:36 | NUR ---
SS following for discharge planning. SS reviewed pt chart. Pt is from home with spouse and is currently on room air. SS will continue to follow for discharge planning.
--- NOTE | 2019-05-31 14:42 | PDOC ---
PROGRESS NOTES Chief Complaint Chief Complaint NSTEMI acute chest pain hx CAD DM2, poor control, he is not aware of his A1c hgb level obese, BMI 33 History of Present Illness History of Present Illness plan cardiac cath today in CVC status cont current Vitals Vitals Vital Signs Date Time Temp Pulse Resp B/P (MAP) Pulse Ox O2 Delivery O2 Flow Rate FiO2 05/31/19 13:45 90 132/65 (87) 93 Room Air 05/31/19 13:00 98.0 98.0 05/31/19 12:38 10 05/31/19 12:35 2.0 Physical Exam General: Alert, Oriented X3, Cooperative, No acute distress Heart: Regular rate Lungs: Clear Abdomen: Normal bowel sounds Extremities: No clubbing, No edema, Normal pulses Skin: No breakdown, No significant lesion Labs LABS Laboratory Tests Test 05/30/19 17:20 05/30/19 18:25 05/31/19 00:53 05/31/19 03:45 Glucose (Fingerstick) 343 mg/dL (70-99) Heparin Anti-Xa Act, Unfractionated 0.30 IU/mL (0.30-0.70) 0.40 IU/mL (0.30-0.70) White Blood Count 8.0 x10^3/uL (4.0-11.0) Red Blood Count 4.95 x10^6/uL (4.30-5.70) Hemoglobin 14.6 g/dL (13.0-17.5) Hematocrit 43.5 % (39.0-53.0) Mean Corpuscular Volume 88 fL (79-100) Mean Corpuscular Hemoglobin 30 pg (25-35) Mean Corpuscular Hemoglobin Concent 34 g/dL (31-37) Red Cell Distribution Width 15.0 % (11.5-14.5) Platelet Count 200 x10^3/uL (140-400) Neutrophils (%) (Auto) 50 % (31-73) Lymphocytes (%) (Auto) 39 % (24-48) Monocytes (%) (Auto) 7 % (0-9) Eosinophils (%) (Auto) 4 % (0-3) Basophils (%) (Auto) 1 % (0-3) Neutrophils # (Auto) 3.9 x10^3/uL (1.8-7.7) Lymphocytes # (Auto) 3.1 x10^3/uL (1.0-4.8) Monocytes # (Auto) 0.5 x10^3/uL (0.0-1.1) Eosinophils # (Auto) 0.3 x10^3/uL (0.0-0.7) Basophils # (Auto) 0.1 x10^3/uL (0.0-0.2) Sodium Level 139 mmol/L (136-145) Potassium Level 4.2 mmol/L (3.5-5.1) Chloride Level 103 mmol/L (98-107) Carbon Dioxide Level 26 mmol/L (21-32) Anion Gap 10 (6-14) Blood Urea Nitrogen 10 mg/dL (8-26) Creatinine 0.9 mg/dL (0.7-1.3) Estimated GFR (Cockcroft-Gault) 83.4 BUN/Creatinine Ratio 11 (6-20) Glucose Level 289 mg/dL (70-99) Calcium Level 9.1 mg/dL (8.5-10.1) Total Bilirubin 0.6 mg/dL (0.2-1.0) Aspartate Amino Transf (AST/SGOT) 63 U/L (15-37) Alanine Aminotransferase (ALT/SGPT) 48 U/L (16-63) Alkaline Phosphatase 81 U/L (46-116) Total Protein 6.9 g/dL (6.4-8.2) Albumin 3.3 g/dL (3.4-5.0) Albumin/Globulin Ratio 0.9 (1.0-1.7) Triglycerides Level 103 mg/dL (0-150) Cholesterol Level 128 mg/dL (0-200) LDL Cholesterol, Calculated 75 mg/dL (0-100) VLDL Cholesterol, Calculated 21 mg/dL (0-40) Non-HDL Cholesterol Calculated 96 mg/dL (0-129) HDL Cholesterol 32 mg/dL (40-60) Cholesterol/HDL Ratio 4.0 Review of Systems Review of Systems no pain, feels well, no event Comment Review of Relevant I have reviewed the following items wan (where applicable) has been applied. Labs Laboratory Tests Test 05/29/19 22:50 05/30/19 00:30 05/30/19 05:50 05/30/19 12:10 White Blood Count 7.8 x10^3/uL (4.0-11.0) Red Blood Count 4.92 x10^6/uL (4.30-5.70) Hemoglobin 14.7 g/dL (13.0-17.5) Hematocrit 42.9 % (39.0-53.0) Mean Corpuscular Volume 87 fL (79-100) Mean Corpuscular Hemoglobin 30 pg (25-35) Mean Corpuscular Hemoglobin Concent 34 g/dL (31-37) Red Cell Distribution Width 14.9 % (11.5-14.5) Platelet Count 212 x10^3/uL (140-400) Neutrophils (%) (Auto) 58 % (31-73) Lymphocytes (%) (Auto) 32 % (24-48) Monocytes (%) (Auto) 7 % (0-9) Eosinophils (%) (Auto) 3 % (0-3) Basophils (%) (Auto) 1 % (0-3) Neutrophils # (Auto) 4.5 x10^3/uL (1.8-7.7) Lymphocytes # (Auto) 2.5 x10^3/uL (1.0-4.8) Monocytes # (Auto) 0.5 x10^3/uL (0.0-1.1) Eosinophils # (Auto) 0.2 x10^3/uL (0.0-0.7) Basophils # (Auto) 0.1 x10^3/uL (0.0-0.2) Prothrombin Time 12.3 SEC (11.7-14.0) Prothromb Time International Ratio 0.9 (0.8-1.1) Sodium Level 138 mmol/L (136-145) Potassium Level 4.1 mmol/L (3.5-5.1) Chloride Level 102 mmol/L (98-107) Carbon Dioxide Level 27 mmol/L (21-32) Anion Gap 9 (6-14) Blood Urea Nitrogen 19 mg/dL (8-26) Creatinine 0.9 mg/dL (0.7-1.3) Estimated GFR (Cockcroft-Gault) 83.4 BUN/Creatinine Ratio 21 (6-20) Glucose Level 325 mg/dL (70-99) Calcium Level 9.2 mg/dL (8.5-10.1) Total Bilirubin 0.5 mg/dL (0.2-1.0) Aspartate Amino Transf (AST/SGOT) 38 U/L (15-37) Alanine Aminotransferase (ALT/SGPT) 43 U/L (16-63) Alkaline Phosphatase 95 U/L (46-116) Troponin I Quantitative 0.092 ng/mL (0.000-0.055) 2.725 ng/mL (0.000-0.055) 21.629 ng/mL (0.000-0.055) Total Protein 6.8 g/dL (6.4-8.2) Albumin 3.3 g/dL (3.4-5.0) Albumin/Globulin Ratio 0.9 (1.0-1.7) Heparin Anti-Xa Act, Unfractionated 0.36 IU/mL (0.30-0.70) Glucose (Fingerstick) 247 mg/dL (70-99) Test 05/30/19 12:40 05/30/19 17:20 05/30/19 18:25 05/31/19 00:53 Heparin Anti-Xa Act, Unfractionated 0.21 IU/mL (0.30-0.70) 0.30 IU/mL (0.30-0.70) 0.40 IU/mL (0.30-0.70) Troponin I Quantitative 20.145 ng/mL (0.000-0.055) Glucose (Fingerstick) 343 mg/dL (70-99) Test 05/31/19 03:45 White Blood Count 8.0 x10^3/uL (4.0-11.0) Red Blood Count 4.95 x10^6/uL (4.30-5.70) Hemoglobin 14.6 g/dL (13.0-17.5) Hematocrit 43.5 % (39.0-53.0) Mean Corpuscular Volume 88 fL (79-100) Mean Corpuscular Hemoglobin 30 pg (25-35) Mean Corpuscular Hemoglobin Concent 34 g/dL (31-37) Red Cell Distribution Width 15.0 % (11.5-14.5) Platelet Count 200 x10^3/uL (140-400) Neutrophils (%) (Auto) 50 % (31-73) Lymphocytes (%) (Auto) 39 % (24-48) Monocytes (%) (Auto) 7 % (0-9) Eosinophils (%) (Auto) 4 % (0-3) Basophils (%) (Auto) 1 % (0-3) Neutrophils # (Auto) 3.9 x10^3/uL (1.8-7.7) Lymphocytes # (Auto) 3.1 x10^3/uL (1.0-4.8) Monocytes # (Auto) 0.5 x10^3/uL (0.0-1.1) Eosinophils # (Auto) 0.3 x10^3/uL (0.0-0.7) Basophils # (Auto) 0.1 x10^3/uL (0.0-0.2) Sodium Level 139 mmol/L (136-145) Potassium Level 4.2 mmol/L (3.5-5.1) Chloride Level 103 mmol/L (98-107) Carbon Dioxide Level 26 mmol/L (21-32) Anion Gap 10 (6-14) Blood Urea Nitrogen 10 mg/dL (8-26) Creatinine 0.9 mg/dL (0.7-1.3) Estimated GFR (Cockcroft-Gault) 83.4 BUN/Creatinine Ratio 11 (6-20) Glucose Level 289 mg/dL (70-99) Calcium Level 9.1 mg/dL (8.5-10.1) Total Bilirubin 0.6 mg/dL (0.2-1.0) Aspartate Amino Transf (AST/SGOT) 63 U/L (15-37) Alanine Aminotransferase (ALT/SGPT) 48 U/L (16-63) Alkaline Phosphatase 81 U/L (46-116) Total Protein 6.9 g/dL (6.4-8.2) Albumin 3.3 g/dL (3.4-5.0) Albumin/Globulin Ratio 0.9 (1.0-1.7) Triglycerides Level 103 mg/dL (0-150) Cholesterol Level 128 mg/dL (0-200) LDL Cholesterol, Calculated 75 mg/dL (0-100) VLDL Cholesterol, Calculated 21 mg/dL (0-40) Non-HDL Cholesterol Calculated 96 mg/dL (0-129) HDL Cholesterol 32 mg/dL (40-60) Cholesterol/HDL Ratio 4.0 Laboratory Tests Test 05/30/19 17:20 05/30/19 18:25 05/31/19 00:53 05/31/19 03:45 Glucose (Fingerstick) 343 mg/dL (70-99) Heparin Anti-Xa Act, Unfractionated 0.30 IU/mL (0.30-0.70) 0.40 IU/mL (0.30-0.70) White Blood Count 8.0 x10^3/uL (4.0-11.0) Red Blood Count 4.95 x10^6/uL (4.30-5.70) Hemoglobin 14.6 g/dL (13.0-17.5) Hematocrit 43.5 % (39.0-53.0) Mean Corpuscular Volume 88 fL (79-100) Mean Corpuscular Hemoglobin 30 pg (25-35) Mean Corpuscular Hemoglobin Concent 34 g/dL (31-37) Red Cell Distribution Width 15.0 % (11.5-14.5) Platelet Count 200 x10^3/uL (140-400) Neutrophils (%) (Auto) 50 % (31-73) Lymphocytes (%) (Auto) 39 % (24-48) Monocytes (%) (Auto) 7 % (0-9) Eosinophils (%) (Auto) 4 % (0-3) Basophils (%) (Auto) 1 % (0-3) Neutrophils # (Auto) 3.9 x10^3/uL (1.8-7.7) Lymphocytes # (Auto) 3.1 x10^3/uL (1.0-4.8) Monocytes # (Auto) 0.5 x10^3/uL (0.0-1.1) Eosinophils # (Auto) 0.3 x10^3/uL (0.0-0.7) Basophils # (Auto) 0.1 x10^3/uL (0.0-0.2) Sodium Level 139 mmol/L (136-145) Potassium Level 4.2 mmol/L (3.5-5.1) Chloride Level 103 mmol/L (98-107) Carbon Dioxide Level 26 mmol/L (21-32) Anion Gap 10 (6-14) Blood Urea Nitrogen 10 mg/dL (8-26) Creatinine 0.9 mg/dL (0.7-1.3) Estimated GFR (Cockcroft-Gault) 83.4 BUN/Creatinine Ratio 11 (6-20) Glucose Level 289 mg/dL (70-99) Calcium Level 9.1 mg/dL (8.5-10.1) Total Bilirubin 0.6 mg/dL (0.2-1.0) Aspartate Amino Transf (AST/SGOT) 63 U/L (15-37) Alanine Aminotransferase (ALT/SGPT) 48 U/L (16-63) Alkaline Phosphatase 81 U/L (46-116) Total Protein 6.9 g/dL (6.4-8.2) Albumin 3.3 g/dL (3.4-5.0) Albumin/Globulin Ratio 0.9 (1.0-1.7) Triglycerides Level 103 mg/dL (0-150) Cholesterol Level 128 mg/dL (0-200) LDL Cholesterol, Calculated 75 mg/dL (0-100) VLDL Cholesterol, Calculated 21 mg/dL (0-40) Non-HDL Cholesterol Calculated 96 mg/dL (0-129) HDL Cholesterol 32 mg/dL (40-60) Cholesterol/HDL Ratio 4.0 Medications Current Medications Heparin Sodium (Porcine) (Heparin Sodium) 4,000 unit 1X ONCE IV Last administered on 05/29/19at 23:17; Start 05/29/19 at 23:00; Stop 05/29/19 at 23:01; Status DC Fentanyl Citrate (Fentanyl 2ml Vial) 100 mcg STK-MED ONCE .ROUTE ; Start 05/29/19 at 23:02; Stop 05/29/19 at 23:03; Status DC Midazolam HCl (Versed) 2 mg STK-MED ONCE .ROUTE ; Start 05/29/19 at 23:02; Stop 05/29/19 at 23:03; Status DC Iodixanol (Visipaque 320) 100 ml STK-MED ONCE .ROUTE ; Start 05/29/19 at 23:03; Stop 05/29/19 at 23:03; Status DC Lidocaine HCl (Lidocaine 1% 20ml Vial) 20 ml STK-MED ONCE .ROUTE ; Start 05/29/19 at 23:03; Stop 05/29/19 at 23:03; Status DC Heparin Sodium/ Sodium Chloride 500 ml @ As Directed STK-MED ONCE .ROUTE ; Start 05/29/19 at 23:03; Stop 05/29/19 at 23:03; Status DC Nitroglycerin (Nitrostat) 0.4 mg PRN Q5MIN PRN SL CHEST PAIN; Start 05/29/19 at 23:30; Stop 05/30/19 at 09:01; Status DC Heparin Sodium/ Dextrose 500 ml @ 0 mls/hr CONT PRN IV PER PROTOCOL Last administered on 05/31/19at 10:30; Start 05/29/19 at 23:30 Heparin Sodium (Porcine) (Heparin Sodium) 2,650 unit PRN Q6HRS PRN IV FOR UFH LEVEL LESS THAN 0.2; Start 05/29/19 at 23:30 Insulin Human Lispro (HumaLOG) 15 units 1X ONCE SQ Last administered on 05/30/19at 09:21; Start 05/30/19 at 09:00; Stop 05/30/19 at 09:01; Status DC Insulin Human Lispro (HumaLOG) 0-9 UNITS TIDWMEALS SQ Last administered on 05/30/19at 17:23; Start 05/30/19 at 12:00 Dextrose (Dextrose 50%-Water Syringe) 12.5 gm PRN Q15MIN PRN IV SEE COMMENTS; Start 05/30/19 at 09:00 Clopidogrel Bisulfate (Plavix) 75 mg DAILY PO Last administered on 05/31/19at 10:38; Start 05/30/19 at 09:00 Gabapentin (Neurontin) 800 mg TID PO Last administered on 05/31/19at 10:39; Start 05/30/19 at 09:00 Famotidine (Pepcid) 20 mg DAILY PO Last administered on 05/31/19at 10:38; Start 05/30/19 at 09:00 Metoprolol Tartrate (Lopressor) 50 mg BID PO Last administered on 05/30/19at 21:01; Start 05/30/19 at 09:00 Metoprolol Tartrate (Lopressor Vial) 5 mg PRN Q6HRS PRN IVP HYPERTENSION Last administered on 05/30/19at 16:01; Start 05/30/19 at 09:00 Morphine Sulfate (Morphine Sulfate) 4 mg PRN Q2HR PRN IV PAIN; Start 05/30/19 at 09:00 Nitroglycerin (Nitrostat) 0.4 mg PRN Q5MIN PRN SL CHEST PAIN; Start 05/30/19 at 09:00 Info (Anti-Coagulation Monitoring By Pharmacy) 1 each PRN DAILY PRN MC SEE COMMENTS Last administered on 05/30/19at 10:57; Start 05/30/19 at 11:00 Sodium Chloride 1,000 ml @ 60 mls/hr [id number] IV Last administered on 05/31/19at 08:00; Start 05/31/19 at 08:00 Acetaminophen (Tylenol) 325 mg PRN Q6HRS PRN PO MILD PAIN / TEMP; Start 05/30/19 at 19:45 Acetaminophen (Tylenol) 650 mg PRN Q6HRS PRN PO PAIN Last administered on 05/30/19at 20:01; Start 05/30/19 at 19:45 Lidocaine HCl (Xylocaine-Mpf 1% 2ml Vial) 2 ml STK-MED ONCE .ROUTE ; Start 05/31/19 at 09:57; Stop 05/31/19 at 09:57; Status DC Iohexol (Omnipaque 300 Mg/ml) 100 ml STK-MED ONCE .ROUTE ; Start 05/31/19 at 10:30; Stop 05/31/19 at 10:30; Status DC Heparin Sodium/ Sodium Chloride 500 ml @ As Directed STK-MED ONCE .ROUTE ; Start 05/31/19 at 10:30; Stop 05/31/19 at 10:30; Status DC Midazolam HCl (Versed) 2 mg STK-MED ONCE .ROUTE ; Start 05/31/19 at 11:46; Stop 05/31/19 at 11:46; Status DC Fentanyl Citrate (Fentanyl 2ml Vial) 100 mcg STK-MED ONCE .ROUTE ; Start 05/31/19 at 11:46; Stop 05/31/19 at 11:46; Status DC Verapamil HCl (Verapamil) 5 mg STK-MED ONCE .ROUTE ; Start 05/31/19 at 11:46; Stop 05/31/19 at 11:46; Status DC Heparin Sodium (Porcine) (Heparin Sodium) 10,000 unit STK-MED ONCE .ROUTE ; Start 05/31/19 at 11:46; Stop 05/31/19 at 11:46; Status DC Nitroglycerin (Nitroglycerin) 200 mcg STK-MED ONCE .ROUTE ; Start 05/31/19 at 11:46; Stop 05/31/19 at 11:46; Status DC Nitroglycerin (Nitroglycerin) 200 mcg 1X ONCE IART Last administered on 05/31/19 12:33; Start 05/31/19 at 12:30; Stop 05/31/19 at 12:31; Status DC Verapamil HCl (Verapamil) 2.5 mg 1X ONCE IART Last administered on 05/31/19 12:34; Start 05/31/19 at 12:30; Stop 05/31/19 at 12:31; Status DC Heparin Sodium (Porcine) (Heparin Sodium) 2,500 unit 1X ONCE IART Last administered on 05/31/19 12:33; Start 05/31/19 at 12:30; Stop 05/31/19 at 1 2:31; Status DC Heparin Sodium/ Sodium Chloride (HEPARIN for ARTERIAL LINE FLUSH) 1,000 unit 1X ONCE IART Last administered on 05/31/19 12:31; Start 05/31/19 at 12:30; Stop 05/31/19 at 12:31; Status DC Midazolam HCl (Versed) 1 mg 1X ONCE IV Last administered on 05/31/19 12:36; Start 05/31/19 at 12:30; Stop 05/31/19 at 12:31; Status DC Fentanyl Citrate (Fentanyl 2ml Vial) 50 mcg 1X ONCE IV Last administered on 05/31/19 12:35; Start 05/31/19 at 12:30; Stop 05/31/19 at 12:31; Status DC Iohexol (Omnipaque 300 Mg/ml) 100 ml 1X ONCE IART Last administered on 05/31/19 12:33; Start 05/31/19 at 12:30; Stop 05/31/19 at 12:31; Status DC Lidocaine HCl (Lidocaine 1% 20ml Vial) 1 ml 1X ONCE INJ Last administered on 05/31/19 12:30; Start 05/31/19 at 12:30; Stop 05/31/19 at 12:31; Status DC Sodium Chloride 1,000 ml @ 60 mls/hr [id number] IV Last administered on 05/31/19 12:32; Start 05/31/19 at 12:32 Nitroglycerin (Nitrostat) 0.4 mg PRN Q5MIN PRN SL CHEST PAIN; Start 05/31/19 at 12:45 Active Scripts Active Reported Metoprolol Tartrate 100 Mg Tablet 250 Mg PO BID Clopidogrel (Clopidogrel Bisulfate) 75 Mg Tablet 1 Tab PO DAILY Glimepiride 4 Mg Tablet 1 Tab PO DAILY Gabapentin 800 Mg Tablet 800 Mg PO TID Ranitidine Hcl 150 Mg Tablet 1 Tab PO DAILY Vitals/I & O Vital Sign - Last 24 Hours 05/30/19 05/30/19 05/30/19 05/30/19 15:00 16:00 16:01 17:00 Temp 98.7 98.7 Pulse 90 90 93 84 Resp 12 16 16 B/P (MAP) 152/91 (111) 170/90 (116) 170/90 160/92 (114) Pulse Ox 93 93 94 O2 Delivery Room Air Room Air Room Air 05/30/19 05/30/19 05/30/19 05/31/19 18:00 20:00 21:01 00:00 Temp 98.0 97.4 98.0 97.4 Pulse 82 87 80 80 Resp 16 18 22 B/P (MAP) 158/83 (108) 140/87 (104) 127/76 106/62 (77) Pulse Ox 94 95 94 O2 Delivery Room Air Room Air Room Air 05/31/19 05/31/19 05/31/19 05/31/19 04:00 08:00 12:34 12:35 Temp 98.1 97.6 98.1 97.6 Pulse 75 80 73 Resp 20 17 10 B/P (MAP) 120/73 (89) 139/92 (108) 131/78 Pulse Ox 95 96 96 O2 Delivery Room Air Room Air Nasal Cannula O2 Flow Rate 2.0 05/31/19 05/31/19 05/31/19 05/31/19 12:38 13:00 13:15 13:30 Temp 98.0 98.0 Pulse 80 76 88 86 Resp 10 B/P (MAP) 120/85 (97) 107/73 (84) 121/72 (88) Pulse Ox 96 94 93 93 O2 Delivery Room Air Room Air Room Air Room Air 05/31/19 13:45 Pulse 90 B/P (MAP) 132/65 (87) Pulse Ox 93 O2 Delivery Room Air Intake and Output 05/30/19 05/30/19 05/31/19 15:02 23:02 07:02 Intake Total 450 ml 422.33 ml 874.5 ml Output Total 1050 ml 1150 ml 1100 ml Balance -600 ml -727.67 ml -225.5 ml ARMANDO SAM MD May 31, 2019 14:42
[2019-05-31] MEDS: ACETAMINOPHEN 325 MG TABLET. PO PRN (20:39)
[2019-05-31] MEDS ORDERED: SIMETHICONE 80 MG TAB.CHEW PO PRN (21:45)
--- NOTE | 2019-06-01 02:30 | NUR ---
Pt. woke up complaining IV site was hurting and I could either remove it or he would. IV flushed without difficulty or pain. Reminded pt that we could possibly have to start a new one. Currently refusing to have another on started in another spot. Will continue to monitor.
[2019-06-01 03:00] VITALS: BP 111/82
[2019-06-01 06:11] LABS: HEMOGLOBIN A1C 8.2 % (4.8-5.6)
[2019-06-01 07:00] VITALS: BP 138/75
--- NOTE | 2019-06-01 07:57 | PDOC ---
PROGRESS NOTES Chief Complaint Chief Complaint discharge dx NSTEMI acute chest pain Patent previously placed stent in the left circumflex artery. 90-95% stenosis involving the midsegment of the posterior descending branch of the right coronary artery with small-caliber vessel beyond the stenosis. Distal inferior wall hypokinesis with ejection fraction estimated at 50% hx CAD DM2, poor control, he is not aware of his A1c hgb level=8.2 obese, BMI 33 History of Present Illness History of Present Illness plan cardiac cath reviewed in CVC status cont current medical mgt d/c planning 27 min Vitals Vitals Vital Signs Date Time Temp Pulse Resp B/P (MAP) Pulse Ox O2 Delivery O2 Flow Rate FiO2 06/01/19 03:00 97.4 86 20 111/82 (92) 93 Room Air 97.4 05/31/19 12:35 2.0 Physical Exam General: Alert, Oriented X3, Cooperative, No acute distress Heart: Regular rate, Normal S1, Normal S2, No murmurs Lungs: Clear Abdomen: Normal bowel sounds, No tenderness Extremities: No clubbing, No cyanosis, No edema, Normal pulses Skin: No breakdown, No significant lesion Labs LABS APPROVED REPORT Technologist: Whitney Briggs RT (R) Nurse: RODRICK LYONS RN Procedure(s) performed: Left heart catheterization, selective coronary angiography and left ventriculography via right transradial approach Fluoro time: 4.1 min Dose: [id number] Contrast:118cc Moderate sedation: 30 min INDICATION The indication(s) include : non-STEMI . [facility] Clinical Frailty Scale [facility] Clinical Frailty Scale: Mildly Frail Heart Failure Heart Failure: No PROCEDURE NARRATIVE After explaining the risks, benefits and alternative options, informed consent was obtained from patient. Patient was brought to the cardiac [facility] and right wrist was prepped and draped in the usual fashion after confirming a positive modified Jefe's test. Arterial access was obtained in the right radial artery and a 6 [place] sheath was inserted. 6 [place] Mani catheter was used to perform selective angiography of the left and right coronary arteries. 6 [place] pigtail catheter was used to perform left ventriculography. Patient tolerated the procedure well. Hemostasis was achieved using TR band. There were no immediate complications. The following findings were noted. FINDINGS 1. Hemodynamics: Left ventricular end-diastolic pressure of 15 mmHg. No pullback gradient across the aortic valve. 2. Left ventriculography: Distal inferior wall hypokinesis with ejection fraction estimated at 50%. No significant mitral regurgitation seen. 3. Coronary angiography: a. The left main coronary artery arose from the left sinus of Valsalva, gave rise to the left anterior descending and left circumflex arteries and did not show any significant stenosis. b. The left anterior descending artery showed 30% stenosis in the proximal segment. c. The left circumflex artery showed a widely patent stent extending from the midsegment into the obtuse marginal branch. d. The right coronary artery was a large and dominant vessel arising from the right sinus of Valsalva that showed 90-95% stenosis in the midsegment of the posterior descending branch. The vessel is of small-caliber beyond the stenosis. Conclusion 1. Patent previously placed stent in the left circumflex artery. 90-95% stenosis involving the midsegment of the posterior descending branch of the right coronary artery with small-caliber vessel beyond the stenosis. 2. Distal inferior wall hypokinesis with ejection fraction estimated at 50% Recommendations Medical Therapy Signed by : Rodger Matos, Electronically Approved : 05/31/2019 13:44:52 DICTATED and SIGNED BY: RODGER MATOS MD DATE: 05/31/19 1237 Laboratory Tests Test 05/31/19 20:14 Glucose (Fingerstick) 304 mg/dL (70-99) Comment Review of Relevant I have reviewed the following items wan (where applicable) has been applied. Labs Laboratory Tests Test 05/30/19 12:10 05/30/19 12:40 05/30/19 17:20 05/30/19 18:25 Glucose (Fingerstick) 247 mg/dL (70-99) 343 mg/dL (70-99) Heparin Anti-Xa Act, Unfractionated 0.21 IU/mL (0.30-0.70) 0.30 IU/mL (0.30-0.70) Troponin I Quantitative 20.145 ng/mL (0.000-0.055) Test 05/31/19 00:53 05/31/19 03:45 10/7/19 20:14 Heparin Anti-Xa Act, Unfractionated 0.40 IU/mL (0.30-0.70) White Blood Count 8.0 x10^3/uL (4.0-11.0) Red Blood Count 4.95 x10^6/uL (4.30-5.70) Hemoglobin 14.6 g/dL (13.0-17.5) Hematocrit 43.5 % (39.0-53.0) Mean Corpuscular Volume 88 fL (79-100) Mean Corpuscular Hemoglobin 30 pg (25-35) Mean Corpuscular Hemoglobin Concent 34 g/dL (31-37) Red Cell Distribution Width 15.0 % (11.5-14.5) Platelet Count 200 x10^3/uL (140-400) Neutrophils (%) (Auto) 50 % (31-73) Lymphocytes (%) (Auto) 39 % (24-48) Monocytes (%) (Auto) 7 % (0-9) Eosinophils (%) (Auto) 4 % (0-3) Basophils (%) (Auto) 1 % (0-3) Neutrophils # (Auto) 3.9 x10^3/uL (1.8-7.7) Lymphocytes # (Auto) 3.1 x10^3/uL (1.0-4.8) Monocytes # (Auto) 0.5 x10^3/uL (0.0-1.1) Eosinophils # (Auto) 0.3 x10^3/uL (0.0-0.7) Basophils # (Auto) 0.1 x10^3/uL (0.0-0.2) Sodium Level 139 mmol/L (136-145) Potassium Level 4.2 mmol/L (3.5-5.1) Chloride Level 103 mmol/L (98-107) Carbon Dioxide Level 26 mmol/L (21-32) Anion Gap 10 (6-14) Blood Urea Nitrogen 10 mg/dL (8-26) Creatinine 0.9 mg/dL (0.7-1.3) Estimated GFR (Cockcroft-Gault) 83.4 BUN/Creatinine Ratio 11 (6-20) Glucose Level 289 mg/dL (70-99) Hemoglobin A1c 8.2 % (4.8-5.6) Calcium Level 9.1 mg/dL (8.5-10.1) Total Bilirubin 0.6 mg/dL (0.2-1.0) Aspartate Amino Transf (AST/SGOT) 63 U/L (15-37) Alanine Aminotransferase (ALT/SGPT) 48 U/L (16-63) Alkaline Phosphatase 81 U/L (46-116) Total Protein 6.9 g/dL (6.4-8.2) Albumin 3.3 g/dL (3.4-5.0) Albumin/Globulin Ratio 0.9 (1.0-1.7) Triglycerides Level 103 mg/dL (0-150) Cholesterol Level 128 mg/dL (0-200) LDL Cholesterol, Calculated 75 mg/dL (0-100) VLDL Cholesterol, Calculated 21 mg/dL (0-40) Non-HDL Cholesterol Calculated 96 mg/dL (0-129) HDL Cholesterol 32 mg/dL (40-60) Cholesterol/HDL Ratio 4.0 Glucose (Fingerstick) 304 mg/dL (70-99) Laboratory Tests Test 05/31/19 20:14 Glucose (Fingerstick) 304 mg/dL (70-99) Medications Current Medications Heparin Sodium (Porcine) (Heparin Sodium) 4,000 unit 1X ONCE IV Last administered on 05/29/19at 23:17; Start 05/29/19 at 23:00; Stop 05/29/19 at 23:01; Status DC Fentanyl Citrate (Fentanyl 2ml Vial) 100 mcg STK-MED ONCE .ROUTE ; Start 05/29/19 at 23:02; Stop 05/29/19 at 23:03; Status DC Midazolam HCl (Versed) 2 mg STK-MED ONCE .ROUTE ; Start 05/29/19 at 23:02; Stop 05/29/19 at 23:03; Status DC Iodixanol (Visipaque 320) 100 ml STK-MED ONCE .ROUTE ; Start 05/29/19 at 23:03; Stop 05/29/19 at 23:03; Status DC Lidocaine HCl (Lidocaine 1% 20ml Vial) 20 ml STK-MED ONCE .ROUTE ; Start 05/29/19 at 23:03; Stop 05/29/19 at 23:03; Status DC Heparin Sodium/ Sodium Chloride 500 ml @ As Directed STK-MED ONCE .ROUTE ; Start 05/29/19 at 23:03; Stop 05/29/19 at 23:03; Status DC Nitroglycerin (Nitrostat) 0.4 mg PRN Q5MIN PRN SL CHEST PAIN; Start 05/29/19 at 23:30; Stop 05/30/19 at 09:01; Status DC Heparin Sodium/ Dextrose 500 ml @ 0 mls/hr CONT PRN IV PER PROTOCOL Last administered on 05/31/19at 10:30; Start 05/29/19 at 23:30; Stop 05/31/19 at 20:29; Status DC Heparin Sodium (Porcine) (Heparin Sodium) 2,650 unit PRN Q6HRS PRN IV FOR UFH LEVEL LESS THAN 0.2; Start 05/29/19 at 23:30; Stop 05/31/19 at 20:29; Status DC Insulin Human Lispro (HumaLOG) 15 units 1X ONCE SQ Last administered on 05/30/19at 09:21; Start 05/30/19 at 09:00; Stop 05/30/19 at 09:01; Status DC Insulin Human Lispro (HumaLOG) 0-9 UNITS TIDWMEALS SQ Last administered on 05/31/19at 20:37; Start 05/30/19 at 12:00 Dextrose (Dextrose 50%-Water Syringe) 12.5 gm PRN Q15MIN PRN IV SEE COMMENTS; Start 05/30/19 at 09:00 Clopidogrel Bisulfate (Plavix) 75 mg DAILY PO Last administered on 05/31/19at 10 :38; Start 05/30/19 at 09:00 Gabapentin (Neurontin) 800 mg TID PO Last administered on 05/31/19at 20:33; Start 05/30/19 at 09:00 Famotidine (Pepcid) 20 mg DAILY PO Last administered on 05/31/19 10:38; Start 05/30/19 at 09:00 Metoprolol Tartrate (Lopressor) 50 mg BID PO Last administered on 05/31/19 20:34; Start 05/30/19 at 09:00 Metoprolol Tartrate (Lopressor Vial) 5 mg PRN Q6HRS PRN IVP HYPERTENSION Last administered on 05/30/19at 16:01; Start 05/30/19 at 09:00 Morphine Sulfate (Morphine Sulfate) 4 mg PRN Q2HR PRN IV PAIN; Start 05/30/19 at 09:00 Nitroglycerin (Nitrostat) 0.4 mg PRN Q5MIN PRN SL CHEST PAIN; Start 05/30/19 at 09:00; Stop 05/31/19 at 20:31; Status DC Info (Anti-Coagulation Monitoring By Pharmacy) 1 each PRN DAILY PRN MC SEE COMMENTS Last administered on 05/30/19at 10:57; Start 05/30/19 at 11:00; Stop 05/31/19 at 20:31; Status DC Sodium Chloride 1,000 ml @ 60 mls/hr [id number] IV Last administered on 05/31/19at 08:00; Start 05/31/19 at 08:00; Stop 05/31/19 at 20:29; Status DC Acetaminophen (Tylenol) 325 mg PRN Q6HRS PRN PO MILD PAIN / TEMP; Start 05/30/19 at 19:45 Acetaminophen (Tylenol) 650 mg PRN Q6HRS PRN PO PAIN Last administered on 05/31/19at 20:39; Start 05/30/19 at 19:45 Lidocaine HCl (Xylocaine-Mpf 1% 2ml Vial) 2 ml STK-MED ONCE .ROUTE ; Start 05/31/19 at 09:57; Stop 05/31/19 at 09:57; Status DC Iohexol (Omnipaque 300 Mg/ml) 100 ml STK-MED ONCE .ROUTE ; Start 05/31/19 at 10:30; Stop 05/31/19 at 10:30; Status DC Heparin Sodium/ Sodium Chloride 500 ml @ As Directed STK-MED ONCE .ROUTE ; Start 05/31/19 at 10:30; Stop 05/31/19 at 10:30; Status DC Midazolam HCl (Versed) 2 mg STK-MED ONCE .ROUTE ; Start 05/31/19 at 11:46; Stop 05/31/19 at 11:46; Status DC Fentanyl Citrate (Fentanyl 2ml Vial) 100 mcg STK-MED ONCE .ROUTE ; Start 05/31 at 11:46; Stop 05/31/19 at 11:46; Status DC Verapamil HCl (Verapamil) 5 mg STK-MED ONCE .ROUTE ; Start 05/31/19 at 11:46; Stop 05/31/19 at 11:46; Status DC Heparin Sodium (Porcine) (Heparin Sodium) 10,000 unit STK-MED ONCE .ROUTE ; Start 05/31/19 at 11:46; Stop 05/31/19 at 11:46; Status DC Nitroglycerin (Nitroglycerin) 200 mcg STK-MED ONCE .ROUTE ; Start 05/31/19 at 11:46; Stop 05/31/19 at 11:46; Status DC Nitroglycerin (Nitroglycerin) 200 mcg 1X ONCE IART Last administered on 05/31/19at 12:33; Start 05/31/19 at 12:30; Stop 05/31/19 at 12:31; Status DC Verapamil HCl (Verapamil) 2.5 mg 1X ONCE IART Last administered on 05/31/19at 12:34; Start 05/31/19 at 12:30; Stop 05/31/19 at 12:31; Status DC Heparin Sodium (Porcine) (Heparin Sodium) 2,500 unit 1X ONCE IART Last administered on 05/31/19at 12:33; Start 05/31/19 at 12:30; Stop 05/31/19 at 12:31; Status DC Heparin Sodium/ Sodium Chloride (HEPARIN for ARTERIAL LINE FLUSH) 1,000 unit 1X ONCE IART Last administered on 05/31/19at 12:31; Start 05/31/19 at 12:30; Stop 05/31/19 at 12:31; Status DC Midazolam HCl (Versed) 1 mg 1X ONCE IV Last administered on 05/31/19at 12:36; Start 05/31/19 at 12:30; Stop 05/31/19 at 12:31; Status DC Fentanyl Citrate (Fentanyl 2ml Vial) 50 mcg 1X ONCE IV Last administered on 05/31/19at 12:35; Start 05/31/19 at 12:30; Stop 05/31/19 at 12:31; Status DC Iohexol (Omnipaque 300 Mg/ml) 100 ml 1X ONCE IART Last administered on 05/31/19at 12:33; Start 05/31/19 at 12:30; Stop 05/31/19 at 12:31; Status DC Lidocaine HCl (Lidocaine 1% 20ml Vial) 1 ml 1X ONCE INJ Last administered on 05/31/19at 12:30; Start 05/31/19 at 12:30; Stop 05/31/19 at 12:31; Status DC Sodium Chloride 1,000 ml @ 60 mls/hr [id number] IV Last administered on 05/31/19at 12:32; Start 05/31/19 at 12:32; Stop 05/31/19 at 20:29; Status DC Nitroglycerin (Nitrostat) 0.4 mg PRN Q5MIN PRN SL CHEST PAIN; Start 05/31/19 at 12:45 Simethicone (Gas-X) 80 mg PRN QID PRN PO GAS / BLOATING Last administered on 05/31/19at 22:05; Start 05/31/19 at 21:45 Active Scripts Active Reported Metoprolol Tartrate 100 Mg Tablet 250 Mg PO BID Clopidogrel (Clopidogrel Bisulfate) 75 Mg Tablet 1 Tab PO DAILY Glimepiride 4 Mg Tablet 1 Tab PO DAILY Gabapentin 800 Mg Tablet 800 Mg PO TID Ranitidine Hcl 150 Mg Tablet 1 Tab PO DAILY Vitals/I & O Vital Sign - Last 24 Hours 05/31/19 05/31/19 05/31/19 05/31/19 08:00 12:34 12:35 12:38 Temp 97.6 97.6 Pulse 80 73 80 Resp 17 10 10 B/P (MAP) 139/92 (108) 131/78 Pulse Ox 96 96 96 O2 Delivery Room Air Nasal Cannula Room Air O2 Flow Rate 2.0 05/31/19 05/31/19 05/31/19 05/31/19 13:00 13:15 13:30 13:45 Temp 98.0 98.0 Pulse 76 88 86 90 B/P (MAP) 120/85 (97) 107/73 (84) 121/72 (88) 132/65 (87) Pulse Ox 94 93 93 93 O2 Delivery Room Air Room Air Room Air Room Air 05/31/19 05/31/19 05/31/19 05/31/19 15:00 15:30 16:00 17:00 Temp 98.3 98.3 Pulse 88 91 85 82 Resp 22 32 26 15 B/P (MAP) 128/72 (90) 134/88 (103) 149/75 (99) 151/91 (111) Pulse Ox 92 94 92 92 O2 Delivery Room Air Room Air Room Air Room Air 05/31/19 05/31/19 05/31/19 06/01/19 20:00 20:34 23:00 03:00 Temp 98.0 97.5 97.4 98.0 97.5 97.4 Pulse 75 85 75 86 Resp 20 20 20 B/P (MAP) 148/83 (104) 146/84 148/83 (104) 111/82 (92) Pulse Ox 96 96 93 O2 Delivery Room Air Room Air Room Air Intake and Output 05/31/19 05/31/19 06/01/19 15:00 23:00 07:00 Intake Total 375 ml 100 ml 460 ml Output Total 350 ml 500 ml Balance 25 ml -400 ml 460 ml VAIBHAV SARAVIA MD Jun 01, 2019 07:57
[2019-06-01] MEDS: FAMOTIDINE 20 MG TABLET. PO SCH (08:05)
[2019-06-01] MEDS: GABAPENTIN 400 MG CAPSULE. PO SCH ×2 (08:05→13:34)
[2019-06-01] MEDS: CLOPIDOGREL BISULFATE 75 MG TABLET PO SCH (08:06)
[2019-06-01] MEDS: METOPROLOL TART IMMED RELEASE 50 MG TABLET. PO SCH (08:06)
[2019-06-01] MEDS: INSULIN LISPRO 300 UNITS/3 ML VIAL. SQ SCH ×2 (08:09→12:11)
--- NOTE | 2019-06-01 08:56 | NUR ---
SW following pt. Pt is a transfer from ICU and lives at home with spouse. No dc recommendations noted at this time. will continue to evaluate dc needs.
[2019-06-01 11:00] VITALS: BP 152/85
--- NOTE | 2019-06-01 13:01 | PDOC3 ---
Discharge Summary Date of Admission: May 29, 2019 Date of Discharge: Jun 01, 2019 Follow-Up: 3-5 days Admitting Diagnosis comment: discharge dx NSTEMI acute chest pain Patent previously placed stent in the left circumflex artery. 90-95% stenosis involving the midsegment of the posterior descending branch of the right coronary artery with small-caliber vessel beyond the stenosis. Distal inferior wall hypokinesis with ejection fraction estimated at 50% hx CAD DM2, poor control, he is not aware of his A1c hgb level=8.2 obese, BMI 33 History of Present Illness History of Present Illness plan cardiac cath reviewed in CVC status cont current medical mgt d/c planning 27 min Vitals Vitals Vital Signs Date Time Temp Pulse Resp B/P (MAP) Pulse Ox O2 Delivery O2 Flow Rate FiO2 06/01/19 03:00 97.4 86 20 111/82 (92) 93 Room Air 97.4 05/31/19 12:35 2.0 Physical Exam General: Alert, Oriented X3, Cooperative, No acute distress Heart: Regular rate, Normal S1, Normal S2, No murmurs Lungs: Clear Abdomen: Normal bowel sounds, No tenderness Extremities: No clubbing, No cyanosis, No edema, Normal pulses Skin: No breakdown, No significant lesion Labs LABS APPROVED REPORT Technologist: RT Stephanie (R) Nurse: RODRICK LYONS RN Procedure(s) performed: Left heart catheterization, selective coronary angiography and left ventriculography via right transradial approach Fluoro time: 4.1 min Dose: [id number] Contrast:118cc Moderate sedation: 30 min INDICATION The indication(s) include : non-STEMI . CSHA Clinical Frailty Scale [facility] Clinical Frailty Scale: Mildly Frail Heart Failure Heart Failure: No PROCEDURE NARRATIVE After explaining the risks, benefits and alternative options, informed consent was obtained from patient. Patient was brought to the cardiac Runner Out and right wrist was prepped and draped in the usual fashion after confirming a p ositive modified Jefe's test. Arterial access was obtained in the right radial artery and a 6 [place] sheath was inserted. 6 [place] Mani catheter was used to perform selective angiography of the left and right coronary arteries. 6 [place] pigtail catheter was used to perform left ventriculography. Patient tolerated the procedure well. Hemostasis was achieved using TR band. There were no immediate complications. The following findings were noted. FINDINGS 1. Hemodynamics: Left ventricular end-diastolic pressure of 15 mmHg. No pullback gradient across the aortic valve. 2. Left ventriculography: Distal inferior wall hypokinesis with ejection fraction estimated at 50%. No significant mitral regurgitation seen. 3. Coronary angiography: a. The left main coronary artery arose from the left sinus of Valsalva, gave rise to the left anterior descending and left circumflex arteries and did not show any significant stenosis. b. The left anterior descending artery showed 30% stenosis in the proximal segment. c. The left circumflex artery showed a widely patent stent extending from the midsegment into the obtuse marginal branch. d. The right coronary artery was a large and dominant vessel arising from the right sinus of Valsalva that showed 90-95% stenosis in the midsegment of the posterior descending branch. The vessel is of small-caliber beyond the stenosis. Conclusion 1. Patent previously placed stent in the left circumflex artery. 90-95% stenosis involving the midsegment of the posterior descending branch of the right coronary artery with small-caliber vessel beyond the stenosis. 2. Distal inferior wall hypokinesis with ejection fraction estimated at 50% Recommendations Medical Therapy Signed by : Manoj Matos, Electronically Approved : 05/31/2019 13:44:52 Brief Hospital Course Mr. Moore is a 69 old [sex] who presented with [NSTEMI ] CONDITION AT DISCHARGE: Improved Discharge Medications Current Medications Heparin Sodium (Porcine) (Heparin Sodium) 4,000 unit 1X ONCE IV Last administered on 05/29/19at 23:17; Start 05/29/19 at 23:00; Stop 05/29/19 at 23:01; Status DC Fentanyl Citrate (Fentanyl 2ml Vial) 100 mcg STK-MED ONCE .ROUTE ; Start 05/29/19 at 23:02; Stop 05/29/19 at 23:03; Status DC Midazolam HCl (Versed) 2 mg STK-MED ONCE .ROUTE ; Start 05/29/19 at 23:02; Stop 05/29/19 at 23:03; Status DC Iodixanol (Visipaque 320) 100 ml STK-MED ONCE .ROUTE ; Start 05/29/19 at 23:03; Stop 05/29/19 at 23:03; Status DC Lidocaine HCl (Lidocaine 1% 20ml Vial) 20 ml STK-MED ONCE .ROUTE ; Start 05/29/19 at 23:03; Stop 05/29/19 at 23:03; Status DC Heparin Sodium/ Sodium Chloride 500 ml @ As Directed STK-MED ONCE .ROUTE ; Start 05/29/19 at 23:03; Stop 05/29/19 at 23:03; Status DC Nitroglycerin (Nitrostat) 0.4 mg PRN Q5MIN PRN SL CHEST PAIN; Start 05/29/19 at 23:30; Stop 05/30/19 at 09:01; Status DC Heparin Sodium/ Dextrose 500 ml @ 0 mls/hr CONT PRN IV PER PROTOCOL Last administered on 05/31/19at 10:30; Start 05/29/19 at 23:30; Stop 05/31/19 at 20:29; Status DC Heparin Sodium (Porcine) (Heparin Sodium) 2,650 unit PRN Q6HRS PRN IV FOR UFH LEVEL LESS THAN 0.2; Start 05/29/19 at 23:30; Stop 05/31/19 at 20:29; Status DC Insulin Human Lispro (HumaLOG) 15 units 1X ONCE SQ Last administered on 05/30/19at 09:21; Start 05/30/19 at 09:00; Stop 05/30/19 at 09:01; Status DC Insulin Human Lispro (HumaLOG) 0-9 UNITS TIDWMEALS SQ Last administered on 06/01/19at 12:11; Start 05/30/19 at 12:00 Dextrose (Dextrose 50%-Water Syringe) 12.5 gm PRN Q15MIN PRN IV SEE COMMENTS; Start 05/30/19 at 09:00 Clopidogrel Bisulfate (Plavix) 75 mg DAILY PO Last administered on 06/01/19at 08:06; Start 05/30/19 at 09:00 Gabapentin (Neurontin) 800 mg TID PO Last administered on 06/01/19at 08:05; Start 05/30/19 at 09:00 Famotidine (Pepcid) 20 mg DAILY PO Last administered on 06/01/19at 08:05; Start 05/30/19 at 09:00 Metoprolol Tartrate (Lopressor) 50 mg BID PO Last administered on 06/01/19at 08:06; Start 05/30/19 at 09:00 Metoprolol Tartrate (Lopressor Vial) 5 mg PRN Q6HRS PRN IVP HYPERTENSION Last administered on 05/30/19at 16:01; Start 05/30/19 at 09:00 Morphine Sulfate (Morphine Sulfate) 4 mg PRN Q2HR PRN IV PAIN; Start 05/30/19 at 09:00 Nitroglycerin (Nitrostat) 0.4 mg PRN Q5MIN PRN SL CHEST PAIN; Start 05/30/19 at 09:00; Stop 05/31/19 at 20:31; Status DC Info (Anti-Coagulation Monitoring By Pharmacy) 1 each PRN DAILY PRN MC SEE COMMENTS Last administered on 05/30/19at 10:57; Start 05/30/19 at 11:00; Stop 05/31/19 at 20:31; Status DC Sodium Chloride 1,000 ml @ 60 mls/hr [id number] IV Last administered on 05/31/19at 08:00; Start 05/31/19 at 08:00; Stop 05/31/19 at 20:29; Status DC Acetaminophen (Tylenol) 325 mg PRN Q6HRS PRN PO MILD PAIN / TEMP; Start 05/30/19 at 19:45 Acetaminophen (Tylenol) 650 mg PRN Q6HRS PRN PO PAIN Last administered on 05/31/19at 20:39; Start 05/30/19 at 19:45 Lidocaine HCl (Xylocaine-Mpf 1% 2ml Vial) 2 ml STK-MED ONCE .ROUTE ; Start 05/31/19 at 09:57; Stop 05/31/19 at 09:57; Status DC Iohexol (Omnipaque 300 Mg/ml) 100 ml STK-MED ONCE .ROUTE ; Start 05/31/19 at 10:30; Stop 05/31/19 at 10:30; Status DC Heparin Sodium/ Sodium Chloride 500 ml @ As Directed STK-MED ONCE .ROUTE ; Start 05/31/19 at 10:30; Stop 05/31/19 at 10:30; Status DC Midazolam HCl (Versed) 2 mg STK-MED ONCE .ROUTE ; Start 05/31/19 at 11:46; Stop 05/31/19 at 11:46; Status DC Fentanyl Citrate (Fentanyl 2ml Vial) 100 mcg STK-MED ONCE .ROUTE ; Start 05/31/19 at 11:46; Stop 05/31/19 at 11:46; Status DC Verapamil HCl (Verapamil) 5 mg STK-MED ONCE .ROUTE ; Start 05/31/19 at 11:46; Stop 05/31/19 at 11:46; Status DC Heparin Sodium (Porcine) (Heparin Sodium) 10,000 unit STK-MED ONCE .ROUTE ; S tart 05/31/19 at 11:46; Stop 05/31/19 at 11:46; Status DC Nitroglycerin (Nitroglycerin) 200 mcg STK-MED ONCE .ROUTE ; Start 05/31/19 at 11:46; Stop 05/31/19 at 11:46; Status DC Nitroglycerin (Nitroglycerin) 200 mcg 1X ONCE IART Last administered on 05/31at 12:33; Start 05/31/19 at 12:30; Stop 05/31/19 at 12:31; Status DC Verapamil HCl (Verapamil) 2.5 mg 1X ONCE IART Last administered on 05/31/19at 12:34; Start 05/31/19 at 12:30; Stop 05/31/19 at 12:31; Status DC Heparin Sodium (Porcine) (Heparin Sodium) 2,500 unit 1X ONCE IART Last administered on 05/31/19at 12:33; Start 05/31/19 at 12:30; Stop 05/31/19 at 12:31; Status DC Heparin Sodium/ Sodium Chloride (HEPARIN for ARTERIAL LINE FLUSH) 1,000 unit 1X ONCE IART Last administered on 05/31/19at 12:31; Start 05/31/19 at 12:30; Stop 05/31/19 at 12:31; Status DC Midazolam HCl (Versed) 1 mg 1X ONCE IV Last administered on 05/31/19at 12:36; Start 05/31/19 at 12:30; Stop 05/31/19 at 12:31; Status DC Fentanyl Citrate (Fentanyl 2ml Vial) 50 mcg 1X ONCE IV Last administered on 05/31/19at 12:35; Start 05/31/19 at 12:30; Stop 05/31/19 at 12:31; Status DC Iohexol (Omnipaque 300 Mg/ml) 100 ml 1X ONCE IART Last administered on 05/31/19at 12:33; Start 05/31/19 at 12:30; Stop 05/31/19 at 12:31; Status DC Lidocaine HCl (Lidocaine 1% 20ml Vial) 1 ml 1X ONCE INJ Last administered on 05/31/19at 12:30; Start 05/31/19 at 12:30; Stop 05/31/19 at 12:31; Status DC Sodium Chloride 1,000 ml @ 60 mls/hr [id number] IV Last administered on 05/31/19at 12:32; Start 05/31/19 at 12:32; Stop 05/31/19 at 20:29; Status DC Nitroglycerin (Nitrostat) 0.4 mg PRN Q5MIN PRN SL CHEST PAIN; Start 05/31/19 at 12:45 Simethicone (Gas-X) 80 mg PRN QID PRN PO GAS / BLOATING Last administered on 05/31/19at 22:05; Start 05/31/19 at 21:45 Active Scripts Active Reported Metoprolol Tartrate 100 Mg Tablet 250 Mg PO BID Clopidogrel (Clopidogrel Bisulfate) 75 Mg Tablet 1 Tab PO DAILY Glimepiride 4 Mg Tablet 1 Tab PO DAILY Gabapentin 800 Mg Tablet 800 Mg PO TID Ranitidine Hcl 150 Mg Tablet 1 Tab PO DAILY Vital Signs Vital Signs Date Time Temp Pulse Resp B/P (MAP) Pulse Ox O2 Delivery O2 Flow Rate FiO2 06/01/19 11:00 97.9 81 16 152/85 (107) 94 Room Air 97.9 05/31/19 12:35 2.0 Labs Laboratory Tests Test 05/30/19 17:20 05/30/19 18:25 05/31/19 00:53 05/31/19 03:45 Glucose (Fingerstick) 343 mg/dL (70-99) Heparin Anti-Xa Act, Unfractionated 0.30 IU/mL (0.30-0.70) 0.40 IU/mL (0.30-0.70) White Blood Count 8.0 x10^3/uL (4.0-11.0) Red Blood Count 4.95 x10^6/uL (4.30-5.70) Hemoglobin 14.6 g/dL (13.0-17.5) Hematocrit 43.5 % (39.0-53.0) Mean Corpuscular Volume 88 fL (79-100) Mean Corpuscular Hemoglobin 30 pg (25-35) Mean Corpuscular Hemoglobin Concent 34 g/dL (31-37) Red Cell Distribution Width 15.0 % (11.5-14.5) Platelet Count 200 x10^3/uL (140-400) Neutrophils (%) (Auto) 50 % (31-73) Lymphocytes (%) (Auto) 39 % (24-48) Monocytes (%) (Auto) 7 % (0-9) Eosinophils (%) (Auto) 4 % (0-3) Basophils (%) (Auto) 1 % (0-3) Neutrophils # (Auto) 3.9 x10^3/uL (1.8-7.7) Lymphocytes # (Auto) 3.1 x10^3/uL (1.0-4.8) Monocytes # (Auto) 0.5 x10^3/uL (0.0-1.1) Eosinophils # (Auto) 0.3 x10^3/uL (0.0-0.7) Basophils # (Auto) 0.1 x10^3/uL (0.0-0.2) Sodium Level 139 mmol/L (136-145) Potassium Level 4.2 mmol/L (3.5-5.1) Chloride Level 103 mmol/L (98-107) Carbon Dioxide Level 26 mmol/L (21-32) Anion Gap 10 (6-14) Blood Urea Nitrogen 10 mg/dL (8-26) Creatinine 0.9 mg/dL (0.7-1.3) Estimated GFR (Cockcroft-Gault) 83.4 BUN/Creatinine Ratio 11 (6-20) Glucose Level 289 mg/dL (70-99) Hemoglobin A1c 8.2 % (4.8-5.6) Calcium Level 9.1 mg/dL (8.5-10.1) Total Bilirubin 0.6 mg/dL (0.2-1.0) Aspartate Amino Transf (AST/SGOT) 63 U/L (15-37) Alanine Aminotransferase (ALT/SGPT) 48 U/L (16-63) Alkaline Phosphatase 81 U/L (46-116) Total Protein 6.9 g/dL (6.4-8.2) Albumin 3.3 g/dL (3.4-5.0) Albumin/Globulin Ratio 0.9 (1.0-1.7) Triglycerides Level 103 mg/dL (0-150) Cholesterol Level 128 mg/dL (0-200) LDL Cholesterol, Calculated 75 mg/dL (0-100) VLDL Cholesterol, Calculated 21 mg/dL (0-40) Non-HDL Cholesterol Calculated 96 mg/dL (0-129) HDL Cholesterol 32 mg/dL (40-60) Cholesterol/HDL Ratio 4.0 Test 05/31/19 20:14 06/01/19 07:51 06/01/19 11:11 Glucose (Fingerstick) 304 mg/dL (70-99) 293 mg/dL (70-99) 250 mg/dL (70-99) Laboratory Tests Test 05/31/19 20:14 06/01/19 07:51 06/01/19 11:11 Glucose (Fingerstick) 304 mg/dL (70-99) 293 mg/dL (70-99) 250 mg/dL (70-99) Allergies Allergies Coded Allergies Type Severity Reaction Last Updated Verified No Known Drug Allergies 05/29/19 No Disposition/Orders: D/C to Home Patient Instructions D/C PLANNING 27 MIN VAIBHAV SARAVIA MD Jun 01, 2019 13:01
[2019-06-01] MEDS ORDERED: NITR0.4T24 SL (13:03)
[2019-06-01] MEDS ORDERED: METO50TA6 PO (13:03)
--- NOTE | 2019-06-01 13:07 | DISCH ---
DISCHARGE INSTRUCTIONS Condition on Discharge Condition on Discharge: Stable Activity After Discharge Activity Instructions for Disc: Activity as tolerated, Avoid exertion Lifting Instructions after Dis: No heavy lifting, No pulling or pushing Driving Instructions after Dis: Do not drive Weight Bearing Status after Di: As tolerated Diet after Discharge Diet after Discharge: Cardiac, Diabetic No Calorie Level Liquid Texture: Thin Liquid Checks after Discharge Checks after discharge: Check blood press - daily Contacting the DR. after DC Call your doctor for: If your condition worsens VAIBHAV SARAVIA MD Jun 01, 2019 13:06
--- NOTE | 2019-06-01 13:53 | NUR ---
Discharge Note: ATTILA SAMANIEGO [facility] Discharge instructions and discharge home medications reviewed with Patient and a copy given. All questions have been answered and understanding verbalized. The following instructions and handouts were given: discharge instructions, new prescriptions, education and follow up recommendations. Discontinued lines and drains: Peripheral IV discontinued intact. Patient discharged to Home or Self Care with Spouse via Wheelchair off unit by RN.
== END 2019-06-01 13:58 | disposition home or self-care (01) | DRG 280 ==
LOC: ER 22:38 → 1 WEST ICU 23:45 → 5 SOUTH 05-31 19:40
PROVIDERS: ADMIT Family Medicine; ATTEND Family Medicine
PROC: 4A023N7 Measurement of Cardiac Sampling and Pressure, Left Heart, Percutaneous Approach (ICD-10-PCS; principal; 2019-05-31)
PROC: B2151ZZ Fluoroscopy of Left Heart using Low Osmolar Contrast (ICD-10-PCS; 2019-05-31)
PROC: B2111ZZ Fluoroscopy of Multiple Coronary Arteries using Low Osmolar Contrast (ICD-10-PCS; 2019-05-31)
DX: I21.4 Non-ST elevation (NSTEMI) myocardial infarction (principal); R65.11 Systemic inflammatory response syndrome (SIRS) of non-infectious origin with acute organ dysfunction; E11.9 Type 2 diabetes mellitus without complications; E66.9 Obesity, unspecified; I10 Essential (primary) hypertension; I25.110 Atherosclerotic heart disease of native coronary artery with unstable angina pectoris; Z68.33 Body mass index [BMI] 33.0-33.9, adult; Z82.49 Family history of ischemic heart disease and other diseases of the circulatory system; Z95.5 Presence of coronary angioplasty implant and graft; I25.2 Old myocardial infarction
CPT/HCPCS: 36415; 71045; 80053; 80061; 82962; 83036; 84484; 85025; 85520; 85610; 93005; 93458; 96372; 96374; 96375; 99152; 99153; C1769; C1892; J1644; J1815; J2250; J3010; J3490; J7030; Q9967; 99291-25; G0378